=== PATIENT | male | born 1955 | race Caucasian/White ===

== ENCOUNTER 2018-10-14 20:22 | Inpatient (IN) ==
--- NOTE | 2018-10-14 21:22 | Emergency Department Note ---
Recheck HPI - General Chief Complaint: Recheck/Abnormal Lab/Rx Stated Complaint: Lab recheck Time Seen by Provider: 10/14/18 21:13 Source: patient Mode of arrival: ambulatory Limitations: no limitations - History of Present Illness HPI Narrative: This 63-year-old gentleman had a low sodium previously and then again was lower today he believes around 121 and was called to have it be rechecked by coming to the emergency room. In the past it has been in the 120s to low 130s. He was on a diuretic for retention of fluid, furosemide 40 mg and Spironolactone 100. The furosemide was recently doubled to 80. Spironolactone he thinks may have been doubled also. He had paracentesis 2 weeks ago and they drained off quite a bit of fluid. He is lost significant weight in the past several weeks because of this. He has gradually lost some weight over the past 6 months according to his . REVIEW OF SYSTEMS: Denies fever, chills. Denies sore throat, runny nose. Denies chest pain. Denies cough and wheezing. Has some chronic shortness of breath. Has a history of emphysema/COPD. Denies abdominal pain. Has occasional nausea. No vomiting. No hematochezia. He feels significantly on the weak side, dizzy/ lightheaded, imbalance and tired. Denies anxiety or depression. - Related Data Home Medications Medication Instructions Recorded Confirmed Albuterol Sulfate [Proair Hfa] 8.5 gm IH DAILY 11/29/17 11/29/17 Ipratropium/Albuterol [Duoneb] 3 ml NEB Q4HP PRN 11/29/17 11/29/17 Lisinopril [Zestril] 10 mg PO DAILY 11/29/17 11/29/17 Allergies Allergy/AdvReac Type Severity Reaction Status Date / Time No Known Drug Allergies Allergy Unverified 11/29/17 17:54 Past Medical History - Past Medical History Medical history: Reports: COPD, hypertension, other (C. difficile history was treated and resolved). Denies: CHF, CVA, DM, hyperlipidemia, hypothyroidism, myocardial infarction, seizures, TIA Psychiatric history: Denies: anxiety, depression Surgical history ED: Reports: appendectomy, herniorrhaphy, tonsillectomy - Social History smoking status: Former smoker Alcohol use: Reports: None (quit early Sep 2018; was 6-8 beer/day.), Daily Drug use: Reports: none. Denies: marijuana Physical Exam Limitations: no limitations General appearance: alert, cachectic, in no apparent distress Head: atraumatic, normocephalic Eye: Present: PERRL, EOMI, scleral icterus (Mild). Absent: conjunctival injection ENT: normal oropharynx, mucous membranes dry Neck: Present: trachea midline. Absent: lymphadenopathy, thyromegaly Respiratory: Present: normal lung sounds bilaterally (But rather distant). Absent: respiratory distress, wheezes, stridor, accessory muscle use, prolonged expiratory phase Cardiovascular: Present: regular rate, normal rhythm. Absent: systolic murmur, diastolic murmur Abdominal: Present: soft. Absent: distention, tenderness, guarding, rebound, rigidity, organomegaly, mass Extremities: Absent: pedal edema, pretibial edema, calf tenderness Back: Absent: CVA tenderness (R), CVA tenderness (L), spinous process tenderness Neurological: Present: alert, oriented X3 Psychiatric: Present: flat affect, serious Skin: Present: warm, dry Course Course Narrative: 8:58 PM - recent hyponatremia. We will do labs. 9:17 PM - I spoke with hospitalist, Dr. Malone. Symptomatic hyponatremia at 119. He would like to get a CBC, CBC and chest x-ray before committing to admission. Vital Signs Temperature 97.6 F 10/14/18 20:23 Pulse Rate 83 10/14/18 20:23 Respiratory Rate 17 10/14/18 20:23 Blood Pressure 112/80 10/14/18 20:23 Pulse Oximetry (%) 88 L 10/14/18 20:23 Temperature 97.6 F 10/14/18 20:23 Pulse Rate 83 10/14/18 20:23 Respiratory Rate 17 10/14/18 20:23 Blood Pressure 112/80 10/14/18 20:23 Pulse Oximetry (%) 88 L 10/14/18 20:23 Recheck/Abnormal Lab/Rx - Medical Records Medical records reviewed: Yes I reviewed the patient's medical records. - Lab Data Lab results reviewed: Yes I reviewed the patient's lab results. Lab Results 10/14/18 Range/Units 20:30 POC Hct 41.0 (41.0-55.0) % POC Sodium 119 L (133-145) mmol/L POC Potassium 3.8 (3.3-5.1) mmol/L POC Chloride 81 L (96-108) mmol/L POC Total CO2 26 (22-30) mmol/L POC BUN 9 (8-23) mg/dl POC Creatinine 0.6 L (0.7-1.2) mg/dl POC Glucose 98 (70-105) mg/dL POC WB Ioniz Calcium 1.04 L (1.16-1.32) mmol/L Disposition Pt seen by [facility]ER/PA only: No Clinical Impression: Hyponatremia, Weakness Summary: With patient's worsening hyponatremia now symptomatic with his weakness, lightheadedness, etc., inpatient treatment is indicated and Dr. Malone kindly accepts care of this patient. Some labs are still pending. Hopefully he is not at the point of end-stage liver disease. Problem list updated. Disposition: Xfer As Inpt ([facility]) Condition: Fair Referrals: Zee Bravo ARNP [Primary Care Provider] -
--- NOTE | 2018-10-14 22:22 | Internal Med History&Physical ---
Medical - H&P: HPI Patient information: Note initiated : 10/14/18 at 10:20 pm Service Date, if different from initiated Date: [] Patient: Dontrell Grande a 63 y/o M admitted on for Lab recheck. Chief Complaint: [] History of present illness: Mr. Grande is a 63 year old M who presents to the emergency room for evaluation of abnormal labs. The patient has a history of severe alcohol intake, he was diagnosed with cirrhosis approximately 4-6 weeks ago, he stopped drinking since then. The patient has been followed up by Dr. Gonzalez. Initially the patient was started on Aldactone 100 mg and Lasix 40 mg, the patient still had some edema and abdominal distention and therefore over the last 2 weeks the dose of Aldactone has been doubled and according to the patient the dose of Lasix also was doubled. It is my understanding that the patient was taking 200 mg of Aldactone and 80 mg of Lasix. The patient was also on lisinopril hydrochlorothiazide which the patient's test was stopped a month ago. Today during his lab work it was found that his sodium level was low 121 he was therefore sent to the emergency room for further evaluation. He is accompanied by his . The patient admits to having some dizziness and disorientation for the last 2-3 days. He denies any other acute complaints or symptoms. He denies any headache changes in vision difficulty in swallowing chest pain shortness of breath no bowel bladder complaints no blood in the stools he denies any edema in the feet and notes that he still feels like his abdomen is distended but it is better than before. He is concerned about the fluid restriction and that he feels very thirsty at the same time he has been given so much water pills. The emergency room [id number] sodium was done sodium was 119 and the patient is being admitted to the hospital for further management. Repeat blood tests have been ordered All systems: reviewed and no additional remarkable complaints except as stated ( As per HPI or is negative) Medical - H&P: PMH Medical history: Medical History (Last Updated 10/14/18 @ 21:37 by Jose Khan DO) Pulmonary hypertension (Chronic) Alcoholic liver disease, unspecified (Chronic) Hyponatremia (Chronic) Cachexia (Chronic) Hypertension, essential (Chronic) Emphysema, unspecified (Chronic) Surgical history: History of appendectomy History of abdominal hernia Pertinent family history: Mother with history of emphysema Social history: Heavy alcohol user quit a month ago Ex-smoker nearly [id number] history of smoking Retired Lives with Medical - H&P: Meds Home Medications Medication Instructions Recorded Confirmed Type Albuterol Sulfate [Proair Hfa] 8.5 gm IH Q4HP PRN 11/29/17 10/14/18 History Ipratropium/Albuterol [Duoneb] 3 ml NEB Q4HP PRN 11/29/17 10/14/18 History Furosemide [Lasix] 80 mg PO ONCE 10/14/18 10/14/18 History Spironolactone [Aldactone] 100 mg PO ONCE 10/14/18 10/14/18 History Allergies Allergy/AdvReac Type Severity Reaction Status Date / Time No Known Drug Allergies Allergy Unverified 11/29/17 17:54 Medical - H&P: Exam - Constitutional Vitals: Temp Pulse Resp BP Pulse Ox 97.6 F 83 17 112/80 88 L 10/14/18 20:23 10/14/18 20:23 10/14/18 20:23 10/14/18 20:23 10/14/18 20:23 Exam: GENERAL: The patient is a think, frail man in no apparent distress. Is alert and oriented x3. VITAL SIGNS: Reviewed and as noted elsewhere. HEENT: Head is normocephalic and atraumatic. Extraocular muscles are intact. Pupils are equal, round, and reactive to light. Nares appeared normal. Mouth appears any without lesions. Mucous membranes are moist. NECK: Normal to inspection, Supple, No lymphadenopathy or thyromegaly. LUNGS: Air entry equal on both sides, decreased bilaterally, no wheezing, crackles or rhonchi noted. No accessory muscles of respiration HEART: Regular rate and rhythm normal, S1 and S2 heard, no Gallop, S3 or Rub Noted, No Gross murmur heard. ABDOMEN: Soft, nontender, and nondistended. Positive bowel sounds. No hepatosplenomegaly was noted. EXTREMITIES: No cyanosis, clubbing, rash, lesions or edema. NEUROLOGIC: Cranial nerves II through XII are grossly intact. Motor and Sensory System Grossly Intact PSYCHIATRIC: Normal affect, Normal Mood. Appropriate Behavior. SKIN: No ulceration or wounds noted, present jaundice, No rash noted. Medical - H&P: Reslt - Labs CBC & Chem 7: 10/14/18 20:50 10/14/18 20:50 Medical - H&P: A/P - Narrative A/P Narrative: A/P Hyponatremia, symptomatic Emphysema ALcoholic Cirrhosis HTN Pulmonary Hypertension Severe Malnourishment Plan admit to [facility] status given that he is symptomatic and sodium less than 120, start on hypertonic saline 15ml/hr, IV lasix 20mg x 1 Trend sodium levels check serum osm, urine sodium, urine osm, tsh, Pt etiology of hyponatremia is likely high dose of aldactone. BP is stable Duonebs q6hrs for emphysema/copd DVT hep sq Full code
[2018-10-14 22:28] LABS: Basophils # (Auto) 0 K/mcL (0.0-0.3); Basophils % (Auto) 0 % (0.0-2.0); Eosinophils # (Auto) 0.1 K/mcL (0.0-0.7); Eosinophils % (Auto) 0.8 % (0.0-7.0); Granulocytes % (Auto) 72.8 % (38.0-78.0); Lymphocytes # (Auto) 1.7 K/mcL (1.5-4.8); Lymphocytes % (Auto) 15.6 % (15.5-49.0); Mean Corpuscular HGB Conc 35.1 g/dL (31.0-36.0); Monocytes # (Auto) 1.2 K/mcL (0.1-0.9); Monocytes % (Auto) 10.8 % (1.0-12.0); Platelet Count 147 K/mcL (140-440); RBC 3.62 M/mcL (4.50-5.90); Red Cell Distribution Width 15.6 % (11.5-14.5)
[2018-10-14 22:50] LABS: ALT/SGPT 55 U/l (0-40); Albumin 2.7 gm/dL (3.2-5.2); Albumin/Globulin Ratio 0.6 (1.0-2.3); Alkaline Phosphatase 121 U/L (39-117); Blood Urea Nitrogen 9 mg/dl (8-23)
[2018-10-14] MEDS ORDERED: ONDANSETRON 4 MG/2 ML VIAL IV PRN (23:06)
[2018-10-14] MEDS ORDERED: ACETAMINOPHEN 325 MG TABLET PO PRN (23:06)
[2018-10-14] MEDS ORDERED: NALOXONE HCL 0.4 MG/ML VIAL IV PRN (23:06)
[2018-10-14] MEDS ORDERED: SODIUM CHLORIDE 3 % 500 ML IV SCH (23:06)
[2018-10-14] MEDS ORDERED: FUROSEMIDE 20 MG/2 ML VIAL IV ONE (23:06)
[2018-10-15 00:02] LABS: Uric Acid 3.2 mg/dL (2.5-8.0)
[2018-10-15] MEDS ORDERED: FUROSEMIDE 20 MG/2 ML VIAL IV ONE (00:28)
[2018-10-15] MEDS: 0.9 % SODIUM CHLORIDE 10 ML SYRINGE IV SCH ×4 (00:37→21:20)
[2018-10-15] MEDS ORDERED: IPRATROPIUM/ALBUTEROL 3 ML AMPUL.NEB NEB ONE ×2 (02:30→22:43)
[2018-10-15 02:31] LABS: Appearance,Urine CLEAR; Bacteria,Urine 0 /hpf (0); Bilirubin,Urine NEG (NEG); Color,Urine YELLOW; Glucose,Urine (UA) NEGATIVE (NEG); Leukocyte Esterase,Urine NEG /uL (NEG); Mucus,Urine FEW /hpf (0); Protein,Urine NEG (NEG); Specific Gravity,Urine 1.018 (1.000-1.035); Urine Blood NEG mg/dL (<0.03); Urine Hyaline Cast 2 /lpf (0-2); Urine RBC 1 /hpf (0-1); Urine Squamous Epithelial Cell < 1 /hpf (0-4); Urine WBC 1 /hpf (0-4)
[2018-10-15] MEDS: IPRATROPIUM/ALBUTEROL 3 ML AMPUL.NEB NEB SCH ×4 (02:35→19:06)
[2018-10-15 02:48] LABS: Osmolality,Urine 501 mOsm/kg (80-1000)
[2018-10-15 02:48] LABS: Blood Urea Nitrogen 9 mg/dl (8-23)
--- NOTE | 2018-10-15 05:01 | XRay Report ---
CLINICAL INFORMATION: hyponatremia COMPARISON: 06/30/2016 FINDINGS: Heart size, mediastinum and pulmonary vessels are normal. Severe COPD changes noted. There are no infiltrates or nodules. No effusions. Mild old compression fractures seen throughout the upper and mid thoracic spine. IMPRESSION: Severe COPD. No acute disease Interpreted and Authenticated by: Jim Broderick 10/15/18
[2018-10-15 05:15] LABS: Basophils # (Auto) 0 K/mcL (0.0-0.3); Basophils % (Auto) 0.1 % (0.0-2.0); Eosinophils # (Auto) 0 K/mcL (0.0-0.7); Eosinophils % (Auto) 0 % (0.0-7.0); Lymphocytes # (Auto) 1.2 K/mcL (1.5-4.8); Mean Cell Volume 103.9 fL (80.0-100.0); Monocytes # (Auto) 1.1 K/mcL (0.1-0.9); Monocytes % (Auto) 11.9 % (1.0-12.0); Platelet Count 112 K/mcL (140-440); RBC 3.15 M/mcL (4.50-5.90); Red Cell Distribution Width 16.9 % (11.5-14.5)
[2018-10-15 05:37] LABS: ALT/SGPT 46 U/l (0-40); Albumin 2.3 gm/dL (3.2-5.2); Albumin/Globulin Ratio 0.6 (1.0-2.3); Alkaline Phosphatase 111 U/L (39-117); Bilirubin,Direct 1.7 mg/dL (0.0-0.3); Blood Urea Nitrogen 9 mg/dl (8-23); Gamma Glutamyl Transpeptidase 65 U/L (8-61); Uric Acid 3.2 mg/dL (2.5-8.0)
[2018-10-15] MEDS ORDERED: SODIUM CHLORIDE 3 % 500 ML IV SCH (06:00)
[2018-10-15] MEDS ORDERED: SODIUM CHLORIDE 3 % 500 ML IV ONE (07:30)
[2018-10-15] MEDS ORDERED: POTASSIUM CHLORIDE 20 MEQ PACKET PO ONE (08:17)
[2018-10-15] MEDS ORDERED: MAGNESIUM SULFATE 32.48 MEQ in DEXTROSE 5% IN WATER 100 ML IV ONE (08:18)
[2018-10-15] MEDS: HEPARIN 5,000 UNIT/ML VIAL SQ SCH ×2 (08:44→21:19)
[2018-10-15] MEDS: FUROSEMIDE 40 MG TABLET PO SCH (08:44)
[2018-10-15] MEDS ORDERED: MAGNESIUM SULFATE IN WATER 4 GM/100 ML BAG IV ONE (09:00)
[2018-10-15] MEDS: SODIUM CHLORIDE 3 % 500 ML IV SCH (10:00)
[2018-10-15 10:05] LABS: Blood Urea Nitrogen 9 mg/dl (8-23)
[2018-10-15] MEDS ORDERED: ALBUTEROL SULFATE 1 PUFF INHALER INH PRN (10:12)
--- NOTE | 2018-10-15 11:06 | Internal Med Progress Note ---
Medical - PN: Subj Patient information: Note initiated : 10/15/18 at 11:04 am Service Date, if different from initiated Date: [] Patient: Dontrell Grande a 63 y/o M admitted on 10/14/18 for Lab recheck. Chief Complaint: [] Interval history: Mr. Grande is a 63 year old M who presents to the emergency room for evaluation of abnormal labs. The patient has a history of severe alcohol intake, he was diagnosed with cirrhosis approximately 4-6 weeks ago, he stopped drinking since then. The patient has been followed up by Dr. Gonzalez. Initially the patient was started on Aldactone 100 mg and Lasix 40 mg, the patient still had some edema and abdominal distention and therefore over the last 2 weeks the dose of Aldactone has been doubled and according to the patient the dose of Lasix also was doubled. It is my understanding that the patient was taking 200 mg of Aldactone and 80 mg of Lasix. The patient was also on lisinopril hydrochlorothiazide which the patient's test was stopped a month ago. Today during his lab work it was found that his sodium level was low 121 he was therefore sent to the emergency room for further evaluation. He is accompanied by his . The patient admits to having some dizziness and disorientation for the last 2-3 days. He denies any other acute complaints or symptoms. He denies any headache changes in vision difficulty in swallowing chest pain shortness of breath no bowel bladder complaints no blood in the stools he denies any edema in the feet and notes that he still feels like his abdomen is distended but it is better than before. He is concerned about the fluid restriction and that he feels very thirsty at the same time he has been given so much water pills. The emergency room [id number] sodium was done sodium was 119 and the patient is being admitted to the hospital for further management. Repeat blood tests have been ordered 10/15 Patient seen and examined, no acute overnight events no new complaints. Chemistry on admission showed a sodium level of 116. Sodium level is slowly trending up, patient is on fluid restriction and 3% saline. TSH is normal, urine sodium 30, urine osm 501 Pertinent ROS: Denies headache, present some dizziness [he feels dizziness is better] Denies chest pain, palpitations Denies cough or shortness of breath Denies abdominal pain, nausea or vomiting. Additional PMFSH (Level 3 Only): Medical History (Last Updated 10/14/18 @ 21:37 by Jose Khan DO) Pulmonary hypertension (Chronic) Alcoholic liver disease, unspecified (Chronic) Hyponatremia (Chronic) Cachexia (Chronic) Hypertension, essential (Chronic) Emphysema, unspecified (Chronic) - Constitutional Vitals: Vital Signs Temp Pulse Resp BP Pulse Ox 98.3 F 88 16 105/63 96 10/15/18 06:31 10/15/18 08:02 10/15/18 08:02 10/15/18 06:31 10/15/18 06:31 Period Temp Pulse Resp BP Sys/Clark Pulse Ox Last 24 Hr 97.6 F-100.3 F 78-88 14-20 99-118/53-80 88-97 Intake and Output 10/14/18 10/15/18 10/15/18 21:59 05:59 13:59 Intake Total 660 / 660 Output Total 225 / 225 250 / 250 Balance -225 / -225 410 / 410 Weight 110 lb 108 lb 8 oz 108 lb 8 oz Patient Weight 10/16/18 05:59 Weight 108 lb 8 oz Intake & Output: Intake & Output 10/14/18 10/15/18 10/15/18 21:59 05:59 13:59 Intake Total 660 / 660 Output Total 225 / 225 250 / 250 Balance -225 / -225 410 / 410 Weight 110 lb 108 lb 8 oz 108 lb 8 oz Intake: IV 300 / 300 Oral 360 / 360 Output: Void Amount 225 / 225 250 / 250 Other: Urine Appearance Clear Urine Color Light Tawanna Urine Odor Strong Exam: Constitutional; Afebrile, cooperative, alert, not in distress. Respiratory system: Air Entry equal on both sides, No crackles or wheezing, no rhonchi. CVS- Rate rhythm regular, S1,S2 heard, no gallop, no rub. Abdomen- Soft nontender abdomen, no organomegaly, no tenderness, no guarding or rigidity, STRATEGIC COMMUNICATIONS SPECIALIST- AOOx3, moving all extremities, no gross focal deficit noted. Medical - PN: Obj Da - Labs CBC & Chem 7: 10/15/18 03:40 10/15/18 08:33 Labs: Abnormal Lab Results 10/15/18 10/15/18 10/15/18 08:33 03:40 03:40 RBC Hgb Hct MCV MCH RDW Plt Count MPV Lymph % (Auto) Lymph # (Auto) Bowman # (Auto) PT 19.4 H INR 1.6 H POC Sodium Sodium 118 L* 117 L* POC Chloride Chloride 84 L 83 L Creatinine 0.5 L 0.5 L POC Creatinine Glucose 134 H Osmolality Calcium 8.2 L 7.9 L POC WB Ioniz Calcium Phosphorus 2.4 L Magnesium 1.4 L Total Bilirubin 3.5 H Direct Bilirubin 1.7 H GGT 65 H AST 73 H ALT 46 H Alkaline Phosphatase Albumin 2.3 L Globulin 3.9 H Albumin/Globulin Ratio 0.6 L Urine Urobilinogen 10/15/18 10/15/18 10/14/18 03:40 01:35 20:50 RBC 3.15 L Hgb 11.4 L Hct 32.7 L MCV 103.9 H MCH 36.3 H RDW 16.9 H Plt Count 112 L MPV 7.2 L Lymph % (Auto) 12.0 L Lymph # (Auto) 1.2 L Bowman # (Auto) 1.1 H PT INR POC Sodium Sodium 118 L* 116 L* POC Chloride Chloride 81 L 81 L Creatinine 0.6 L 0.6 L POC Creatinine Glucose 130 H Osmolality Calcium 8.2 L 8.5 L POC WB Ioniz Calcium Phosphorus Magnesium Total Bilirubin 4.3 H Direct Bilirubin GGT AST 98 H ALT 55 H Alkaline Phosphatase 121 H Albumin 2.7 L Globulin 4.5 H Albumin/Globulin Ratio 0.6 L Urine Urobilinogen 10/14/18 10/14/18 10/14/18 20:50 20:48 20:30 RBC 3.62 L Hgb 13.1 L Hct 37.3 L MCV 103.0 H MCH 36.2 H RDW 15.6 H Plt Count MPV 6.8 L Lymph % (Auto) Lymph # (Auto) Bowman # (Auto) 1.2 H PT INR POC Sodium 119 L Sodium POC Chloride 81 L Chloride Creatinine POC Creatinine 0.6 L Glucose Osmolality 248 L Calcium POC WB Ioniz Calcium 1.04 L Phosphorus Magnesium Total Bilirubin Direct Bilirubin GGT AST ALT Alkaline Phosphatase Albumin Globulin Albumin/Globulin Ratio Urine Urobilinogen 10/14/18 01:55 RBC Hgb Hct MCV MCH RDW Plt Count MPV Lymph % (Auto) Lymph # (Auto) Bowman # (Auto) PT INR POC Sodium Sodium POC Chloride Chloride Creatinine POC Creatinine Glucose Osmolality Calcium POC WB Ioniz Calcium Phosphorus Magnesium Total Bilirubin Direct Bilirubin GGT AST ALT Alkaline Phosphatase Albumin Globulin Albumin/Globulin Ratio Urine Urobilinogen 2.0 A Meds: Medications Acetaminophen (Tylenol) 650 mg PO Q12HP PRN PRN Reason: PAIN/FEVER > 101 Albuterol Sulfate (Ventolin) 1 puff INH Q4HP PRN PRN Reason: Shortness Of Breath Albuterol/Ipratropium (Duoneb) 3 ml NEB Q6HRT [facility] Last Admin: 10/15/18 07:59 Dose: 3 ml Furosemide (Lasix) 40 mg PO DAILY [facility] Last Admin: 10/15/18 08:44 Dose: 40 mg Heparin Sodium (Porcine) (Heparin) 5,000 unit SQ Q12 [facility] Last Admin: 10/15/18 08:44 Dose: 5,000 unit Sodium Chloride (Sodium Chloride 3%) 500 mls @ 25 mls/hr IV ONCE LILIA Stop: 10/16/18 12:00 Last Admin: 10/15/18 10:00 Dose: 25 mls/hr Naloxone HCl (Narcan) 0.1 mg IV Q2MIN PRN PRN Reason: Opiate Reversal Ondansetron HCl (Zofran) 4 mg IV Q4HP PRN PRN Reason: Nausea And Vomiting Sodium Chloride (Saline Flush) 10 ml IV Q8 [facility] Last Admin: 10/15/18 06:00 Dose: Not Given Medical - PN: A/P - Time Spent With Patient Total time spent is greater than 50% in coordination of care (as documented) at patient's floor/unit and/or counseling patient: - Narrative A/P Narrative: A/P Hyponatremia, symptomatic ( was on lasix and aldactone, dose was doubled 2 weeks before presentation) -dizzness improved -Na 118 today, drip of saline 3% increased to 25ml/hr, check sodium every 4 hrs as possible, once sodium crosses 120 we can switch to oral sodium chloride and fluid restriction with lasix -urine sodium 30, Urine osm elevated -protein energy malnutrition could also be playing a role, alb is 2.3 Emphysema -stable, -continue home inhalers -duonebs ALcoholic Cirrhosis -T jessica stable, -follow up outpatient with Dr Gonzalez HTN -BP stable, not on any meds, was on lisinopril-hctz -but I beileve lasix and aldactone is helping. Pulmonary Hypertension -outpatient follow up Severe Malnourishment -encourage oral intake -Dietary referral -albumin is 2.3 DVT hep sq Full code Medical - PN: Qual - VTE Deep Vein Thrombosis/Pulmonary Embolism Present on Admission: No
--- NOTE | 2018-10-15 13:32 | Internal Med Progress Note ---
Medical - PN: Subj Patient information: Note initiated : 10/15/18 at 1:28 pm Service Date, if different from initiated Date: [] Patient: Dontrell Grande a 63 y/o M admitted on 10/14/18 for Lab recheck. Chief Complaint: [] Interval history: Mr. Grande is a 63 year old M who presents to the emergency room for evaluation of abnormal labs. The patient has a history of severe alcohol intake, he was diagnosed with cirrhosis approximately 4-6 weeks ago, he stopped drinking since then. The patient has been followed up by Dr. Gonzalez. Initially the patient was started on Aldactone 100 mg and Lasix 40 mg, the patient still had some edema and abdominal distention and therefore over the last 2 weeks the dose of Aldactone has been doubled and according to the patient the dose of Lasix also was doubled. It is my understanding that the patient was taking 200 mg of Aldactone and 80 mg of Lasix. The patient was also on lisinopril hydrochlorothiazide which the patient's test was stopped a month ago. Today during his lab work it was found that his sodium level was low 121 he was therefore sent to the emergency room for further evaluation. He is accompanied by his . The patient admits to having some dizziness and disorientation for the last 2-3 days. He denies any other acute complaints or symptoms. He denies any headache changes in vision difficulty in swallowing chest pain shortness of breath no bowel bladder complaints no blood in the stools he denies any edema in the feet and notes that he still feels like his abdomen is distended but it is better than before. He is concerned about the fluid restriction and that he feels very thirsty at the same time he has been given so much water pills. The emergency room [id number] sodium was done sodium was 119 and the patient is being admitted to the hospital for further management. Repeat blood tests have been ordered 10/15 Patient seen and examined, no acute overnight events no new complaints. Chemistry on admission showed a sodium level of 116. Sodium level is slowly trending up, patient is on fluid restriction and 3% saline. TSH is normal, urine sodium 30, urine osm 501 10/16 - Constitutional Vitals: Vital Signs Temp Pulse Resp BP Pulse Ox 97.8 F 88 20 100/73 99 10/15/18 12:50 10/15/18 08:02 10/15/18 12:50 10/15/18 12:50 10/15/18 12:50 Period Temp Pulse Resp BP Sys/Clark Pulse Ox Last 24 Hr 97.6 F-100.3 F 78-88 14-20 99-118/53-80 88-99 Intake and Output 10/14/18 10/15/18 10/15/18 21:59 05:59 13:59 Intake Total 660 / 660 Output Total 225 / 225 250 / 250 Balance -225 / -225 410 / 410 Weight 49.895 kg 49.215 kg 49.215 kg Patient Weight 10/16/18 05:59 Weight 49.215 kg Intake & Output: Intake & Output 10/14/18 10/15/18 10/15/18 21:59 05:59 13:59 Intake Total 660 / 660 Output Total 225 / 225 250 / 250 Balance -225 / -225 410 / 410 Weight 49.895 kg 49.215 kg 49.215 kg Intake: IV 300 / 300 Oral 360 / 360 Output: Void Amount 225 / 225 250 / 250 Other: Urine Appearance Clear Urine Color Light Tawanna Urine Odor Strong Exam: General: Alert, Awake, No acute Distress Eyes/N/T: EOMI, Head/Neck: neck supple, CV: RRR, No murmurs, Pulm: Clear b/l, no wheezing/rhonchi/rales Abd: soft, nontender, +BS x4 Ext: no clubbing/cyanosis/edema Neuro: Alert, no focal deficits, moves all extremities, Skin: warm/dry Medical - PN: Obj Da - Labs CBC & Chem 7: 10/15/18 03:40 10/15/18 08:33 Labs: Abnormal Lab Results 10/15/18 10/15/18 10/15/18 08:33 03:40 03:40 RBC Hgb Hct MCV MCH RDW Plt Count MPV Lymph % (Auto) Lymph # (Auto) [place] # (Auto) PT 19.4 H INR 1.6 H POC Sodium Sodium 118 L* 117 L* POC Chloride Chloride 84 L 83 L Creatinine 0.5 L 0.5 L POC Creatinine Glucose 134 H Osmolality Calcium 8.2 L 7.9 L POC WB Ioniz Calcium Phosphorus 2.4 L Magnesium 1.4 L Total Bilirubin 3.5 H Direct Bilirubin 1.7 H GGT 65 H AST 73 H ALT 46 H Alkaline Phosphatase Albumin 2.3 L Globulin 3.9 H Albumin/Globulin Ratio 0.6 L Urine Urobilinogen 10/15/18 10/15/18 10/14/18 03:40 01:35 20:50 RBC 3.15 L Hgb 11.4 L Hct 32.7 L MCV 103.9 H MCH 36.3 H RDW 16.9 H Plt Count 112 L MPV 7.2 L Lymph % (Auto) 12.0 L Lymph # (Auto) 1.2 L [place] # (Auto) 1.1 H PT INR POC Sodium Sodium 118 L* 116 L* POC Chloride Chloride 81 L 81 L Creatinine 0.6 L 0.6 L POC Creatinine Glucose 130 H Osmolality Calcium 8.2 L 8.5 L POC WB Ioniz Calcium Phosphorus Magnesium Total Bilirubin 4.3 H Direct Bilirubin GGT AST 98 H ALT 55 H Alkaline Phosphatase 121 H Albumin 2.7 L Globulin 4.5 H Albumin/Globulin Ratio 0.6 L Urine Urobilinogen 10/14/18 10/14/18 10/14/18 20:50 20:48 20:30 RBC 3.62 L Hgb 13.1 L Hct 37.3 L MCV 103.0 H MCH 36.2 H RDW 15.6 H Plt Count MPV 6.8 L Lymph % (Auto) Lymph # (Auto) [place] # (Auto) 1.2 H PT INR POC Sodium 119 L Sodium POC Chloride 81 L Chloride Creatinine POC Creatinine 0.6 L Glucose Osmolality 248 L Calcium POC WB Ioniz Calcium 1.04 L Phosphorus Magnesium Total Bilirubin Direct Bilirubin GGT AST ALT Alkaline Phosphatase Albumin Globulin Albumin/Globulin Ratio Urine Urobilinogen 10/14/18 01:55 RBC Hgb Hct MCV MCH RDW Plt Count MPV Lymph % (Auto) Lymph # (Auto) [place] # (Auto) PT INR POC Sodium Sodium POC Chloride Chloride Creatinine POC Creatinine Glucose Osmolality Calcium POC WB Ioniz Calcium Phosphorus Magnesium Total Bilirubin Direct Bilirubin GGT AST ALT Alkaline Phosphatase Albumin Globulin Albumin/Globulin Ratio Urine Urobilinogen 2.0 A Meds: Medications Acetaminophen (Tylenol) 650 mg PO Q12HP PRN PRN Reason: PAIN/FEVER > 101 Albuterol Sulfate (Ventolin) 1 puff INH Q4HP PRN PRN Reason: Shortness Of Breath Albuterol/Ipratropium (Duoneb) 3 ml NEB Q6HRT [facility] Last Admin: 10/15/18 07:59 Dose: 3 ml Furosemide (Lasix) 40 mg PO DAILY [facility] Last Admin: 10/15/18 08:44 Dose: 40 mg Heparin Sodium (Porcine) (Heparin) 5,000 unit SQ Q12 [facility] Last Admin: 10/15/18 08:44 Dose: 5,000 unit Sodium Chloride (Sodium Chloride 3%) 500 mls @ 25 mls/hr IV ONCE [facility] Stop: 10/16/18 12:00 Last Admin: 10/15/18 10:00 Dose: 25 mls/hr Naloxone HCl (Narcan) 0.1 mg IV Q2MIN PRN PRN Reason: Opiate Reversal Ondansetron HCl (Zofran) 4 mg IV Q4HP PRN PRN Reason: Nausea And Vomiting Sodium Chloride (Saline Flush) 10 ml IV Q8 [facility] Last Admin: 10/15/18 06:00 Dose: Not Given Medical - PN: A/P - Time Spent With Patient Total time spent is greater than 50% in coordination of care (as documented) at patient's floor/unit and/or counseling patient: - Narrative A/P Narrative: A: *Hyponatremia, symptomatic ( was on lasix and aldactone, dose was doubled 2 weeks before presentation) -dizzness improved -Na 118 today, -urine sodium 30, Urine osm elevated -protein energy malnutrition could also be playing a role, alb is 2.3 *Emphysema: stable, *Alcoholic Cirrhosis: T jessica stable, -follow up outpatient with Dr Gonzalez *HTN: -BP stable, not on any meds, was on lisinopril-hctz but I beileve lasix and aldactone is helping. *Pulmonary Hypertension: outpatient follow up *Severe Malnourishment: *Hypomag: P: - drip of saline 3% increased to 25ml/hr, check sodium every 4 hrs as possible, once sodium crosses 120 we can switch to oral sodium chloride and fluid restriction with lasix - -continue home inhalers -duonebs -encourage oral intake -Dietary referral -replete mag -pp: hep sq Full code Medical - PN: Qual - VTE Deep Vein Thrombosis/Pulmonary Embolism Present on Admission: No
[2018-10-15 13:57] LABS: Blood Urea Nitrogen 9 mg/dl (8-23)
[2018-10-15 19:24] LABS: Blood Urea Nitrogen 9 mg/dl (8-23)
[2018-10-15 21:59] LABS: Blood Urea Nitrogen 9 mg/dl (8-23)
[2018-10-16] MEDS: SODIUM CHLORIDE 3 % 500 ML IV SCH (00:43)
[2018-10-16] MEDS: IPRATROPIUM/ALBUTEROL 3 ML AMPUL.NEB NEB SCH ×5 (00:43→18:30)
[2018-10-16] MEDS: 0.9 % SODIUM CHLORIDE 10 ML SYRINGE IV SCH ×3 (05:05→21:01)
[2018-10-16 05:22] LABS: Basophils # (Auto) 0 K/mcL (0.0-0.3); Basophils % (Auto) 0.3 % (0.0-2.0); Eosinophils # (Auto) 0 K/mcL (0.0-0.7); Eosinophils % (Auto) 0.3 % (0.0-7.0); Granulocytes % (Auto) 73.1 % (38.0-78.0); Lymphocytes # (Auto) 1.4 K/mcL (1.5-4.8); Lymphocytes % (Auto) 13.6 % (15.5-49.0); Mean Cell Volume 105.4 fL (80.0-100.0); Mean Corpuscular HGB Conc 35.4 g/dL (31.0-36.0); Monocytes # (Auto) 1.3 K/mcL (0.1-0.9); Monocytes % (Auto) 12.7 % (1.0-12.0); Platelet Count 97 K/mcL (140-440); RBC 3.12 M/mcL (4.50-5.90); Red Cell Distribution Width 17.4 % (11.5-14.5)
[2018-10-16 05:45] LABS: ALT/SGPT 45 U/l (0-40); Albumin 2.3 gm/dL (3.2-5.2); Albumin/Globulin Ratio 0.6 (1.0-2.3); Alkaline Phosphatase 111 U/L (39-117); Bilirubin,Direct 1.7 mg/dL (0.0-0.3); Blood Urea Nitrogen 10 mg/dl (8-23); Gamma Glutamyl Transpeptidase 65 U/L (8-61); Uric Acid 2.7 mg/dL (2.5-8.0)
--- NOTE | 2018-10-16 07:22 | Internal Med Progress Note ---
Medical - PN: Subj Patient information: Note initiated : 10/16/18 at 7:13 am Service Date, if different from initiated Date: [] Patient: Dontrell Grande a 63 y/o M admitted on 10/14/18 for Lab recheck. Chief Complaint: [] Interval history: Mr. Grande is a 63 year old M who presents to the emergency room for evaluation of abnormal labs. The patient has a history of severe alcohol intake, he was diagnosed with cirrhosis approximately 4-6 weeks ago, he stopped drinking since then. The patient has been followed up by Dr. Gonzalez. Initially the patient was started on Aldactone 100 mg and Lasix 40 mg, the patient still had some edema and abdominal distention and therefore over the last 2 weeks the dose of Aldactone has been doubled and according to the patient the dose of Lasix also was doubled. It is my understanding that the patient was taking 200 mg of Aldactone and 80 mg of Lasix. The patient was also on lisinopril hydrochlorothiazide which the patient's test was stopped a month ago. Today during his lab work it was found that his sodium level was low 121 he was therefore sent to the emergency room for further evaluation. He is accompanied by his . The patient admits to having some dizziness and disorientation for the last 2-3 days. He denies any other acute complaints or symptoms. He denies any headache changes in vision difficulty in swallowing chest pain shortness of breath no bowel bladder complaints no blood in the stools he denies any edema in the feet and notes that he still feels like his abdomen is distended but it is better than before. He is concerned about the fluid restriction and that he feels very thirsty at the same time he has been given so much water pills. The emergency room [id number] sodium was done sodium was 119 and the patient is being admitted to the hospital for further management. Repeat blood tests have been ordered 10/15 Patient seen and examined, no acute overnight events no new complaints. Chemistry on admission showed a sodium level of 116. Sodium level is slowly trending up, patient is on fluid restriction and 3% saline. TSH is normal, urine sodium 30, urine osm 501 10/16 Supple. No dizziness or lightheadedness. No new complaints. Sodium level improving and switching to oral salt tabs today. Review of Systems: denies headache/fever/chills/nausea/vomiting/chest or abdominal pain/cough/ dyspnea/diarrhea. Otherwise see above. - Constitutional Vitals: Vital Signs Temp Pulse Resp BP Pulse Ox 98.3 F 87 17 103/63 95 10/16/18 04:00 10/15/18 22:56 10/16/18 04:00 10/16/18 04:00 10/16/18 04:00 Period Temp Pulse Resp BP Sys/Clark Pulse Ox Last 24 Hr 97.6 F-99.3 F 84-88 16-20 100-115/62-73 94-99 Intake and Output 10/15/18 10/16/18 10/16/18 21:59 05:59 13:59 Intake Total 360 / 360 968 / 968 Output Total 250 / 250 400 / 400 Balance 110 / 110 568 / 568 Weight 51.483 kg Intake & Output: Intake & Output 10/15/18 10/16/18 10/16/18 21:59 05:59 13:59 Intake Total 360 / 360 968 / 968 Output Total 250 / 250 400 / 400 Balance 110 / 110 568 / 568 Weight 51.483 kg Intake: IV 368 / 368 Sodium Chloride 3% 500 ml @ 25 368 / 368 mls/hr IV ONCE [facility] Rx#: [id number] Oral 360 / 360 600 / 600 Output: Void Amount 250 / 250 400 / 400 Other: Meal Dinner plate of vegetables Percent of Meal Consumed 100% Urine Appearance Clear Urine Color Dark Yellow Light Tawanna Exam: General: Alert, Awake, No acute Distress, cachectic Eyes/N/T: EOMI, Head/Neck: neck supple, CV: RRR, No murmurs, Pulm: Clear b/l, no wheezing/rhonchi/rales Abd: soft, protuberant, nontender, +BS x4 Ext: no clubbing/cyanosis/edema Neuro: Alert, no focal deficits, moves all extremities, Skin: warm/dry Medical - PN: Obj Da - Labs CBC & Chem 7: 10/16/18 03:40 10/16/18 03:40 Labs: Abnormal Lab Results 10/16/18 10/16/18 10/16/18 03:40 03:40 03:40 RBC 3.12 L Hgb 11.6 L Hct 32.9 L MCV 105.4 H MCH 37.3 H RDW 17.4 H Plt Count 97 L MPV 7.1 L Lymph % (Auto) 13.6 L [place] % (Auto) 12.7 H Lymph # (Auto) 1.4 L [place] # (Auto) 1.3 H PT 19.6 H INR 1.7 H POC Sodium Sodium 124 L POC Chloride Chloride 93 L Carbon Dioxide Creatinine 0.5 L POC Creatinine Glucose Osmolality Calcium 7.8 L POC WB Ioniz Calcium Phosphorus 2.2 L Magnesium Total Bilirubin 3.6 H Direct Bilirubin 1.7 H GGT 65 H AST 70 H ALT 45 H Alkaline Phosphatase Albumin 2.3 L Globulin 3.8 H Albumin/Globulin Ratio 0.6 L Urine Urobilinogen 10/15/18 10/15/18 10/15/18 20:56 17:48 13:05 RBC Hgb Hct MCV MCH RDW Plt Count MPV Lymph % (Auto) [place] % (Auto) Lymph # (Auto) [place] # (Auto) PT INR POC Sodium Sodium 120 L 120 L 119 L* POC Chloride Chloride 89 L 87 L 85 L Carbon Dioxide 21 L Creatinine 0.5 L 0.6 L 0.5 L POC Creatinine Glucose 119 H 107 H Osmolality Calcium 7.6 L 8.0 L 8.1 L POC WB Ioniz Calcium Phosphorus Magnesium Total Bilirubin Direct Bilirubin GGT AST ALT Alkaline Phosphatase Albumin Globulin Albumin/Globulin Ratio Urine Urobilinogen 10/15/18 10/15/18 10/15/18 08:33 03:40 03:40 RBC Hgb Hct MCV MCH RDW Plt Count MPV Lymph % (Auto) [place] % (Auto) Lymph # (Auto) [place] # (Auto) PT 19.4 H INR 1.6 H POC Sodium Sodium 118 L* 117 L* POC Chloride Chloride 84 L 83 L Carbon Dioxide Creatinine 0.5 L 0.5 L POC Creatinine Glucose 134 H Osmolality Calcium 8.2 L 7.9 L POC WB Ioniz Calcium Phosphorus 2.4 L Magnesium 1.4 L Total Bilirubin 3.5 H Direct Bilirubin 1.7 H GGT 65 H AST 73 H ALT 46 H Alkaline Phosphatase Albumin 2.3 L Globulin 3.9 H Albumin/Globulin Ratio 0.6 L Urine Urobilinogen 10/15/18 10/15/18 10/14/18 03:40 01:35 20:50 RBC 3.15 L Hgb 11.4 L Hct 32.7 L MCV 103.9 H MCH 36.3 H RDW 16.9 H Plt Count 112 L MPV 7.2 L Lymph % (Auto) 12.0 L [place] % (Auto) Lymph # (Auto) 1.2 L [place] # (Auto) 1.1 H PT INR POC Sodium Sodium 118 L* 116 L* POC Chloride Chloride 81 L 81 L Carbon Dioxide Creatinine 0.6 L 0.6 L POC Creatinine Glucose 130 H Osmolality Calcium 8.2 L 8.5 L POC WB Ioniz Calcium Phosphorus Magnesium Total Bilirubin 4.3 H Direct Bilirubin GGT AST 98 H ALT 55 H Alkaline Phosphatase 121 H Albumin 2.7 L Globulin 4.5 H Albumin/Globulin Ratio 0.6 L Urine Urobilinogen 10/14/18 10/14/18 10/14/18 20:50 20:48 20:30 RBC 3.62 L Hgb 13.1 L Hct 37.3 L MCV 103.0 H MCH 36.2 H RDW 15.6 H Plt Count MPV 6.8 L Lymph % (Auto) [place] % (Auto) Lymph # (Auto) [place] # (Auto) 1.2 H PT INR POC Sodium 119 L Sodium POC Chloride 81 L Chloride Carbon Dioxide Creatinine POC Creatinine 0.6 L Glucose Osmolality 248 L Calcium POC WB Ioniz Calcium 1.04 L Phosphorus Magnesium Total Bilirubin Direct Bilirubin GGT AST ALT Alkaline Phosphatase Albumin Globulin Albumin/Globulin Ratio Urine Urobilinogen 10/14/18 01:55 RBC Hgb Hct MCV MCH RDW Plt Count MPV Lymph % (Auto) [place] % (Auto) Lymph # (Auto) [place] # (Auto) PT INR POC Sodium Sodium POC Chloride Chloride Carbon Dioxide Creatinine POC Creatinine Glucose Osmolality Calcium POC WB Ioniz Calcium Phosphorus Magnesium Total Bilirubin Direct Bilirubin GGT AST ALT Alkaline Phosphatase Albumin Globulin Albumin/Globulin Ratio Urine Urobilinogen 2.0 A Meds: Medications Acetaminophen (Tylenol) 650 mg PO Q12HP PRN PRN Reason: PAIN/FEVER > 101 Albuterol Sulfate (Ventolin) 1 puff INH Q4HP PRN PRN Reason: Shortness Of Breath Albuterol/Ipratropium (Duoneb) 3 ml NEB Q6HRT [facility] Last Admin: 10/16/18 00:57 Dose: Not Given Furosemide (Lasix) 40 mg PO DAILY [facility] Last Admin: 10/15/18 08:44 Dose: 40 mg Furosemide (Lasix) 20 mg IV BIDD [facility] Heparin Sodium (Porcine) (Heparin) 5,000 unit SQ Q12 [facility] Last Admin: 10/15/18 21:19 Dose: 5,000 unit Naloxone HCl (Narcan) 0.1 mg IV Q2MIN PRN PRN Reason: Opiate Reversal Ondansetron HCl (Zofran) 4 mg IV Q4HP PRN PRN Reason: Nausea And Vomiting Sodium Chloride (Saline Flush) 10 ml IV Q8 [facility] Last Admin: 10/16/18 05:05 Dose: Not Given Medical - PN: A/P - Time Spent With Patient Total time spent is greater than 50% in coordination of care (as documented) at patient's floor/unit and/or counseling patient: - Narrative A/P Narrative: A: *Hyponatremia, symptomatic (was on lasix/aldactone, dose was doubled 2 weeks before presentation) -dizziness improved -116 on admit -urine sodium 30, Urine osm elevated -protein energy malnutrition could also be playing a role, alb is 2.3 *Alcoholic Cirrhosis: T jessica stable, -follow up outpatient with Dr Gillis -Sequela of thrombocytopenia/coagulopathy/hypoalbuminemia *Emphysema: stable, *HTN: BP stable, not on any meds, was on lisinopril-hctz, but appears lasix and aldactone were helping. *Pulmonary Hypertension: outpatient follow up *Severe Malnourishment: *Hypomag: improved P: -d/c 3%, oral salt tabs -fluid restrict 1500cc, lasix -aldactone held for now -continue home inhalers -duonebs -Dietary referral; encourage oral intake -replete mag -pp: hep sq Full code Medical - PN: Qual - VTE Deep Vein Thrombosis/Pulmonary Embolism Present on Admission: No
[2018-10-16] MEDS ORDERED: FUROSEMIDE 20 MG/2 ML VIAL IV SCH (08:00)
[2018-10-16] MEDS ORDERED: LACTULOSE 20 GM/30 ML ORAL.SOL PO ONE (08:54)
[2018-10-16] MEDS: SODIUM CHLORIDE 1 GM TABLET PO SCH ×3 (10:04→21:01)
[2018-10-16] MEDS: FUROSEMIDE 40 MG TABLET PO SCH (10:04)
[2018-10-16] MEDS: HEPARIN 5,000 UNIT/ML VIAL SQ SCH ×2 (10:16→21:00)
--- NOTE | 2018-10-16 11:12 | Discharge Summary ---
Medical - DS: Prov Patient information: Note initiated : 10/16/18 at 11:10 am Service Date, if different from initiated Date: [] Patient: Dontrell Grande 63 y/o M admitted on 10/14/18 for Lab recheck. Chief Complaint: [] Date of admission: 10/14/18 22:55 Discharge date: 10/18/18 Primary care physician: Zee Bravo Consults: 10/14/18 Consult to Physician [CONS] Stat Comment: Consulting Provider: Jo-Ann Malone Reason For Exam: Physician to Consult Medical - DS: Meds - Discharge Medications Prescriptions: Thiamine [Vitamin B1] 100 mg PO DAILY #60 tab Active and Home Medications: Home Medications Albuterol Sulfate [Proair Hfa] 8.5 gm IH Q4HP PRN 11/29/17 [History Confirmed Last Taken 10/14/18 22:30] Ipratropium/Albuterol [Duoneb] 3 ml NEB Q4HP PRN 11/29/17 [History Confirmed Last Taken 10/14/18 18:30] Furosemide [Lasix] 80 mg PO DAILY 10/14/18 [History Confirmed 10/14/18 Last Taken 10/13/18 14:00] Spironolactone [Aldactone] 100 mg PO DAILY 10/14/18 [History Confirmed 10/14/18 Last Taken 10/13/18] Glucosamine HCl/MSM [Sm Glucosamine & MSM Tablet] 1,500 mg PO 2-3XW 10/15/18 [ History Confirmed 10/15/18 Last Taken 10/14/18] Magnesium Oxide [Magnesium] 250 mg PO 2-3XW 10/15/18 [History Confirmed Last Taken Unknown] Potassium Gluconate 99 mg PO DAILY 10/15/18 [History Confirmed 10/15/18 Last Taken 10/14/18] Home Medications Albuterol Sulfate [Proair Hfa] 8.5 gm IH Q4HP PRN 11/29/17 [History Confirmed Last Taken 10/14/18 22:30] Ipratropium/Albuterol [Duoneb] 3 ml NEB Q4HP PRN 11/29/17 [History Confirmed Last Taken 10/14/18 18:30] Spironolactone [Aldactone] 100 mg PO DAILY 10/14/18 [History Confirmed 10/14/18 Last Taken 10/13/18] Glucosamine HCl/MSM [Sm Glucosamine & MSM Tablet] 1,500 mg PO 2-3XW 10/15/18 [ History Confirmed 10/15/18 Last Taken 10/14/18] Magnesium Oxide [Magnesium] 250 mg PO 2-3XW 10/15/18 [History Confirmed Last Taken Unknown] Potassium Gluconate 99 mg PO DAILY 10/15/18 [History Confirmed 10/15/18 Last Taken 10/14/18] Furosemide [Lasix] 40 mg PO DAILY tablet 10/16/18 [Rx Last Taken Unknown] Medical - DS: Hosp Hospital course: Mr. Grande is a 63 year old M Mr. Grande is a 63 year old M who presents to the emergency room for evaluation of abnormal labs. The patient has a history of severe alcohol intake, he was diagnosed with cirrhosis approximately 4-6 weeks ago, he stopped drinking since then. The patient has been followed up by Dr. Gonzalez. Initially the patient was started on Aldactone 100 mg and Lasix 40 mg, the patient still had some edema and abdominal distention and therefore over the last 2 weeks the dose of Aldactone has been doubled and according to the patient the dose of Lasix also was doubled. It is my understanding that the patient was taking 200 mg of Aldactone and 80 mg of Lasix. The patient was also on lisinopril hydrochlorothiazide which the patient's test was stopped a month ago. Today during his lab work it was found that his sodium level was low 121 he was therefore sent to the emergency room for further evaluation. He is accompanied by his . The patient admits to having some dizziness and disorientation for the last 2-3 days. He denies any other acute complaints or symptoms. He denies any headache changes in vision difficulty in swallowing chest pain shortness of breath no bowel bladder complaints no blood in the stools he denies any edema in the feet and notes that he still feels like his abdomen is distended but it is better than before. He is concerned about the fluid restriction and that he feels very thirsty at the same time he has been given so much water pills. The emergency room [id number] sodium was done sodium was 119 and the patient is being admitted to the hospital for further management. Repeat blood tests have been ordered 10/15 Patient seen and examined, no acute overnight events no new complaints. Chemistry on admission showed a sodium level of 116. Sodium level is slowly trending up, patient is on fluid restriction and 3% saline. TSH is normal, urine sodium 30, urine osm 501 10/16 Supple. No dizziness or lightheadedness. No new complaints. Sodium level improving and switching to oral salt tabs today. 10/17 Bowel movements now. Slept well. States his normal sodium level runs around 130. 1/ Overnight events. Patient stable for discharge sodium at baseline. Discharge diagnosis: Hyponatremia acute on chronic alcoholic cirrhosis emphysema - Time Spent with Patient Total time spent providing and/or coordinating discharge services: Greater than 30 minutes Medical - DS: Exam - Constitutional Vitals: Vital Signs Temp Pulse Resp BP Pulse Ox 10/16/18 07:53 98.6 F 20 106/62 97 10/16/18 07:30 80 18 10/16/18 04:00 98.3 F 17 103/63 95 10/16/18 00:00 99.3 F H 18 113/62 97 10/15/18 22:56 87 18 10/15/18 20:00 97.6 F 18 115/66 96 10/15/18 16:00 98.8 F 16 115/62 94 10/15/18 13:40 84 18 10/15/18 12:50 97.8 F 20 100/73 99 Intake and Output 10/15/18 10/16/18 10/16/18 21:59 05:59 13:59 Intake Total 360 / 360 968 / 968 Output Total 250 / 250 400 / 400 Balance 110 / 110 568 / 568 Intake: IV 368 / 368 Sodium Chloride 3% 500 ml @ 25 368 / 368 mls/hr IV ONCE [facility] Rx#: [id number] Oral 360 / 360 600 / 600 Output: Void Amount 250 / 250 400 / 400 Other: Meal Dinner plate of vegetables Percent of Meal Consumed 100% Urine Appearance Clear Urine Color Dark Yellow Light Tawanna Weight 51.483 kg Medical - DS: Data Labs on day of discharge: Labs from last 24 hours 10/16/18 10/16/18 10/16/18 03:40 03:40 03:40 WBC 10.0 RBC 3.12 L Hgb 11.6 L Hct 32.9 L MCV 105.4 H MCH 37.3 H MCHC 35.4 RDW 17.4 H Plt Count 97 L MPV 7.1 L Gran % 73.1 Lymph % (Auto) 13.6 L [place] % (Auto) 12.7 H Eos % (Auto) 0.3 Baso % (Auto) 0.3 Gran # 7.3 Lymph # (Auto) 1.4 L [place] # (Auto) 1.3 H Eos # (Auto) 0 Baso # (Auto) 0 PT 19.6 H INR 1.7 H Sodium 124 L Potassium 4.0 Chloride 93 L Carbon Dioxide 23 Anion Gap 8.0 BUN 10 Creatinine 0.5 L GFR Calculation 115 Glucose 102 Uric Acid 2.7 Calcium 7.8 L Phosphorus 2.2 L Magnesium 1.8 Total Bilirubin 3.6 H Direct Bilirubin 1.7 H GGT 65 H AST 70 H ALT 45 H Alkaline Phosphatase 111 Lactate Dehydrogenase 224 Total Protein 6.1 Albumin 2.3 L Globulin 3.8 H Albumin/Globulin Ratio 0.6 L Triglycerides 26 10/15/18 10/15/18 10/15/18 20:56 17:48 13:05 WBC RBC Hgb Hct MCV MCH MCHC RDW Plt Count MPV Gran % Lymph % (Auto) [place] % (Auto) Eos % (Auto) Baso % (Auto) Gran # Lymph # (Auto) [place] # (Auto) Eos # (Auto) Baso # (Auto) PT INR Sodium 120 L 120 L 119 L* Potassium 4.1 4.1 4.5 Chloride 89 L 87 L 85 L Carbon Dioxide 23 21 L 23 Anion Gap 8.0 12.0 11.0 BUN 9 9 9 Creatinine 0.5 L 0.6 L 0.5 L GFR Calculation 115 106 115 Glucose 94 119 H 107 H Uric Acid Calcium 7.6 L 8.0 L 8.1 L Phosphorus Magnesium Total Bilirubin Direct Bilirubin GGT AST ALT Alkaline Phosphatase Lactate Dehydrogenase Total Protein Albumin Globulin Albumin/Globulin Ratio Triglycerides Medical - DS: A/P - Patient/Caregiver Discharge Instructions Activity: increase activity as tolerated Diet: Regular Diet (1800ml/day fluid restrict) Prescriptions: Thiamine [Vitamin B1] 100 mg PO DAILY #60 tab - Follow up Plan Follow up with: Zee Bravo ARNP [Primary Care Provider] - Roly Gillis MD [Physician] - Disposition: Home Health Service Prognosis: Fair Rehab Potential: Fair Medical - DS: Qual - VTE Deep Vein Thrombosis/Pulmonary Embolism Present on Admission: No
[2018-10-16 13:17] LABS: Blood Urea Nitrogen 10 mg/dl (8-23)
[2018-10-16] MEDS ORDERED: MAGNESIUM HYDROXIDE 30 ML ORAL.SUSP PO PRN (17:01)
[2018-10-16] MEDS ORDERED: BISACODYL 10 MG SUPP.RECT PR PRN (17:01)
[2018-10-16 18:25] LABS: Blood Urea Nitrogen 11 mg/dl (8-23)
[2018-10-16] MEDS ORDERED: FUROSEMIDE 40 MG/4 ML VIAL IV ONE (20:01)
[2018-10-16] MEDS ORDERED: ALBUMIN HUMAN 12.5 GM/50 ML BAG IV ONE (20:01)
[2018-10-16] MEDS: DOCUSATE SODIUM 100 MG CAPSULE PO SCH (21:01)
[2018-10-17] MEDS: IPRATROPIUM/ALBUTEROL 3 ML AMPUL.NEB NEB SCH ×4 (01:00→20:03)
[2018-10-17] MEDS: 0.9 % SODIUM CHLORIDE 10 ML SYRINGE IV SCH ×3 (04:48→21:54)
[2018-10-17 05:56] LABS: Basophils # (Auto) 0 K/mcL (0.0-0.3); Basophils % (Auto) 0.4 % (0.0-2.0); Eosinophils # (Auto) 0 K/mcL (0.0-0.7); Eosinophils % (Auto) 0 % (0.0-7.0); Granulocytes % (Auto) 78.7 % (38.0-78.0); Lymphocytes # (Auto) 1.4 K/mcL (1.5-4.8); Lymphocytes % (Auto) 11.5 % (15.5-49.0); Mean Corpuscular HGB Conc 34.6 g/dL (31.0-36.0); Monocytes # (Auto) 1.1 K/mcL (0.1-0.9); Monocytes % (Auto) 9.4 % (1.0-12.0); Platelet Count 104 K/mcL (140-440); RBC 3.29 M/mcL (4.50-5.90); Red Cell Distribution Width 17.6 % (11.5-14.5)
[2018-10-17 06:42] LABS: Blood Urea Nitrogen 10 mg/dl (8-23)
--- NOTE | 2018-10-17 07:13 | Internal Med Progress Note ---
Medical - PN: Subj Patient information: Note initiated : 10/17/18 at 7:05 am Service Date, if different from initiated Date: [] Patient: Dontrell Grande a 63 y/o M admitted on 10/14/18 for Lab recheck. Chief Complaint: [] Interval history: Mr. Grande is a 63 year old M who presents to the emergency room for evaluation of abnormal labs. The patient has a history of severe alcohol intake, he was diagnosed with cirrhosis approximately 4-6 weeks ago, he stopped drinking since then. The patient has been followed up by Dr. Gonzalez. Initially the patient was started on Aldactone 100 mg and Lasix 40 mg, the patient still had some edema and abdominal distention and therefore over the last 2 weeks the dose of Aldactone has been doubled and according to the patient the dose of Lasix also was doubled. It is my understanding that the patient was taking 200 mg of Aldactone and 80 mg of Lasix. The patient was also on lisinopril hydrochlorothiazide which the patient's test was stopped a month ago. Today during his lab work it was found that his sodium level was low 121 he was therefore sent to the emergency room for further evaluation. He is accompanied by his . The patient admits to having some dizziness and disorientation for the last 2-3 days. He denies any other acute complaints or symptoms. He denies any headache changes in vision difficulty in swallowing chest pain shortness of breath no bowel bladder complaints no blood in the stools he denies any edema in the feet and notes that he still feels like his abdomen is distended but it is better than before. He is concerned about the fluid restriction and that he feels very thirsty at the same time he has been given so much water pills. The emergency room [id number] sodium was done sodium was 119 and the patient is being admitted to the hospital for further management. Repeat blood tests have been ordered 10/15 Patient seen and examined, no acute overnight events no new complaints. Chemistry on admission showed a sodium level of 116. Sodium level is slowly trending up, patient is on fluid restriction and 3% saline. TSH is normal, urine sodium 30, urine osm 501 10/16 Supple. No dizziness or lightheadedness. No new complaints. Sodium level improving and switching to oral salt tabs today. 10/17 Bowel movements now. Slept well. States his normal sodium level runs around 130. Review of Systems: denies headache/fever/chills/nausea/vomiting/chest or abdominal pain/cough/ dyspnea/diarrhea. Otherwise see above. - Constitutional Vitals: Vital Signs Temp Pulse Resp BP Pulse Ox 97.7 F 76 16 128/89 98 10/17/18 00:00 10/16/18 13:45 10/17/18 00:00 10/17/18 00:00 10/17/18 00:00 Period Temp Pulse Resp BP Sys/Clark Pulse Ox Last 24 Hr 97.7 F-99 F 76-80 16-20 103-138/61-89 96-99 Intake and Output 10/16/18 10/17/18 10/17/18 21:59 05:59 13:59 Intake Total 360 / 360 50 / 50 Output Total 325 / 325 Balance 360 / 360 -275 / -275 Weight 51.936 kg Intake & Output: Intake & Output 10/16/18 10/17/18 10/17/18 21:59 05:59 13:59 Intake Total 360 / 360 50 / 50 Output Total 325 / 325 Balance 360 / 360 -275 / -275 Weight 51.936 kg Intake: IV 50 / 50 Oral 360 / 360 Output: Void Amount 325 / 325 Other: Urine Color Dark Yellow Stool Size Large Stool Color Brown Stool Consistency Soft Dry and Hard Formed # Voids 1 # Bowel Movements 1 Exam: General: Alert, Awake, No acute Distress, cachectic Eyes/N/T: EOMI, Head/Neck: neck supple, CV: RRR, No murmurs, Pulm: Clear b/l, no wheezing/rhonchi/rales Abd: soft, protuberant, nontender, +BS x4 Ext: no clubbing/cyanosis/edema Neuro: Alert, no focal deficits, moves all extremities, Skin: warm/dry Medical - PN: Obj Da - Labs CBC & Chem 7: 10/17/18 04:00 10/17/18 04:00 Labs: Abnormal Lab Results 10/17/18 10/17/18 10/17/18 04:00 04:00 04:00 WBC 11.8 H RBC 3.29 L Hgb 12.1 L Hct 34.8 L MCV 106.0 H MCH 36.7 H RDW 17.6 H Plt Count 104 L MPV 7.2 L Gran % 78.7 H Lymph % (Auto) 11.5 L [place] % (Auto) Gran # 9.3 H Lymph # (Auto) 1.4 L [place] # (Auto) 1.1 H PT 18.6 H INR 1.6 H POC Sodium Sodium 126 L POC Chloride Chloride 92 L Carbon Dioxide Creatinine 0.5 L POC Creatinine Glucose Osmolality Calcium 8.3 L POC WB Ioniz Calcium Phosphorus Magnesium Total Bilirubin Direct Bilirubin GGT AST ALT Alkaline Phosphatase Albumin Globulin Albumin/Globulin Ratio Urine Urobilinogen 10/16/18 10/16/18 10/16/18 17:38 12:16 03:40 WBC RBC Hgb Hct MCV MCH RDW Plt Count MPV Gran % Lymph % (Auto) [place] % (Auto) Gran # Lymph # (Auto) [place] # (Auto) PT INR POC Sodium Sodium 123 L 126 L 124 L POC Chloride Chloride 94 L 94 L 93 L Carbon Dioxide 20 L Creatinine 0.5 L 0.4 L 0.5 L POC Creatinine Glucose 126 H Osmolality Calcium 8.4 L 8.1 L 7.8 L POC WB Ioniz Calcium Phosphorus 2.2 L Magnesium Total Bilirubin 3.6 H Direct Bilirubin 1.7 H GGT 65 H AST 70 H ALT 45 H Alkaline Phosphatase Albumin 2.3 L Globulin 3.8 H Albumin/Globulin Ratio 0.6 L Urine Urobilinogen 10/16/18 10/16/18 10/15/18 03:40 03:40 20:56 WBC RBC 3.12 L Hgb 11.6 L Hct 32.9 L MCV 105.4 H MCH 37.3 H RDW 17.4 H Plt Count 97 L MPV 7.1 L Gran % Lymph % (Auto) 13.6 L [place] % (Auto) 12.7 H Gran # Lymph # (Auto) 1.4 L [place] # (Auto) 1.3 H PT 19.6 H INR 1.7 H POC Sodium Sodium 120 L POC Chloride Chloride 89 L Carbon Dioxide Creatinine 0.5 L POC Creatinine Glucose Osmolality Calcium 7.6 L POC WB Ioniz Calcium Phosphorus Magnesium Total Bilirubin Direct Bilirubin GGT AST ALT Alkaline Phosphatase Albumin Globulin Albumin/Globulin Ratio Urine Urobilinogen 10/15/18 10/15/18 10/15/18 17:48 13:05 08:33 WBC RBC Hgb Hct MCV MCH RDW Plt Count MPV Gran % Lymph % (Auto) [place] % (Auto) Gran # Lymph # (Auto) [place] # (Auto) PT INR POC Sodium Sodium 120 L 119 L* 118 L* POC Chloride Chloride 87 L 85 L 84 L Carbon Dioxide 21 L Creatinine 0.6 L 0.5 L 0.5 L POC Creatinine Glucose 119 H 107 H Osmolality Calcium 8.0 L 8.1 L 8.2 L POC WB Ioniz Calcium Phosphorus Magnesium Total Bilirubin Direct Bilirubin GGT AST ALT Alkaline Phosphatase Albumin Globulin Albumin/Globulin Ratio Urine Urobilinogen 10/15/18 10/15/18 10/15/18 03:40 03:40 03:40 WBC RBC 3.15 L Hgb 11.4 L Hct 32.7 L MCV 103.9 H MCH 36.3 H RDW 16.9 H Plt Count 112 L MPV 7.2 L Gran % Lymph % (Auto) 12.0 L [place] % (Auto) Gran # Lymph # (Auto) 1.2 L [place] # (Auto) 1.1 H PT 19.4 H INR 1.6 H POC Sodium Sodium 117 L* POC Chloride Chloride 83 L Carbon Dioxide Creatinine 0.5 L POC Creatinine Glucose 134 H Osmolality Calcium 7.9 L POC WB Ioniz Calcium Phosphorus 2.4 L Magnesium 1.4 L Total Bilirubin 3.5 H Direct Bilirubin 1.7 H GGT 65 H AST 73 H ALT 46 H Alkaline Phosphatase Albumin 2.3 L Globulin 3.9 H Albumin/Globulin Ratio 0.6 L Urine Urobilinogen 10/15/18 10/14/18 10/14/18 01:35 20:50 20:50 WBC RBC 3.62 L Hgb 13.1 L Hct 37.3 L MCV 103.0 H MCH 36.2 H RDW 15.6 H Plt Count MPV 6.8 L Gran % Lymph % (Auto) [place] % (Auto) Gran # Lymph # (Auto) [place] # (Auto) 1.2 H PT INR POC Sodium Sodium 118 L* 116 L* POC Chloride Chloride 81 L 81 L Carbon Dioxide Creatinine 0.6 L 0.6 L POC Creatinine Glucose 130 H Osmolality Calcium 8.2 L 8.5 L POC WB Ioniz Calcium Phosphorus Magnesium Total Bilirubin 4.3 H Direct Bilirubin GGT AST 98 H ALT 55 H Alkaline Phosphatase 121 H Albumin 2.7 L Globulin 4.5 H Albumin/Globulin Ratio 0.6 L Urine Urobilinogen 1210/14/18 10/14/18 20:48 20:30 01:55 WBC RBC Hgb Hct MCV MCH RDW Plt Count MPV Gran % Lymph % (Auto) [place] % (Auto) Gran # Lymph # (Auto) [place] # (Auto) PT INR POC Sodium 119 L Sodium POC Chloride 81 L Chloride Carbon Dioxide Creatinine POC Creatinine 0.6 L Glucose Osmolality 248 L Calcium POC WB Ioniz Calcium 1.04 L Phosphorus Magnesium Total Bilirubin Direct Bilirubin GGT AST ALT Alkaline Phosphatase Albumin Globulin Albumin/Globulin Ratio Urine Urobilinogen 2.0 A Meds: Medications Acetaminophen (Tylenol) 650 mg PO Q12HP PRN PRN Reason: PAIN/FEVER > 101 Albuterol Sulfate (Ventolin) 1 puff INH Q4HP PRN PRN Reason: Shortness Of Breath Albuterol/Ipratropium (Duoneb) 3 ml NEB Q6HRT [facility] Last Admin: 10/17/18 01:00 Dose: Not Given Bisacodyl (Dulcolax) 10 mg AR Q2-3DAYS PRN PRN Reason: Constipation Docusate Sodium (Colace) 100 mg PO BID [facility] Last Admin: 10/16/18 21:01 Dose: 100 mg Furosemide (Lasix) 40 mg PO DAILY [facility] Last Admin: 10/16/18 10:04 Dose: 40 mg Heparin Sodium (Porcine) (Heparin) 5,000 unit SQ Q12 [facility] Last Admin: 10/16/18 21:00 Dose: 5,000 unit Magnesium Hydroxide (Milk Of Magnesia) 30 ml PO DAILYP PRN PRN Reason: Constipation Last Admin: 10/16/18 17:29 Dose: 30 ml Naloxone HCl (Narcan) 0.1 mg IV Q2MIN PRN PRN Reason: Opiate Reversal Ondansetron HCl (Zofran) 4 mg IV Q4HP PRN PRN Reason: Nausea And Vomiting Sodium Chloride (Saline Flush) 10 ml IV Q8 [facility] Last Admin: 10/17/18 04:48 Dose: 10 ml Sodium Chloride (Sodium Chloride) 1 gm PO TID [facility] Last Admin: 10/16/18 21:01 Dose: 1 gm Medical - PN: A/P - Time Spent With Patient Total time spent is greater than 50% in coordination of care (as documented) at patient's floor/unit and/or counseling patient: - Narrative A/P Narrative: A: *Hyponatremia, symptomatic (was on lasix/aldactone, dose was doubled 2 weeks before presentation) acute on chronic: he states he normally runs about 130 -dizziness improved -116 on admit -urine sodium 30, Urine osm elevated -protein energy malnutrition could also be playing a role, alb is 2.3 *Alcoholic Cirrhosis: T jessica stable, -follow up outpatient with Dr Gillis -Sequela of thrombocytopenia/coagulopathy/hypoalbuminemia *Emphysema: stable, *HTN: BP stable, not on any meds, was on lisinopril-hctz, but appears lasix and aldactone were helping. *Pulmonary Hypertension: outpatient follow up *Severe Malnourishment: *Hypomag: improved P: -oral salt tabs -fluid restrict 1500cc, lasix -aldactone held for now -continue home inhalers -duonebs -Dietary referral; encourage oral intake -replete mag -pp: hep sq Full code Medical - PN: Qual - VTE Deep Vein Thrombosis/Pulmonary Embolism Present on Admission: No
[2018-10-17] MEDS ORDERED: ALBUMIN HUMAN 12.5 GM/50 ML BAG IV ONE (08:00)
[2018-10-17] MEDS: FUROSEMIDE 20 MG/2 ML VIAL IV SCH ×2 (09:35→16:06)
[2018-10-17] MEDS: SODIUM CHLORIDE 1 GM TABLET PO SCH ×3 (09:35→21:34)
[2018-10-17] MEDS: DOCUSATE SODIUM 100 MG CAPSULE PO SCH ×2 (09:35→21:34)
[2018-10-17 12:50] LABS: Blood Urea Nitrogen 10 mg/dl (8-23)
[2018-10-17] MEDS: HEPARIN 5,000 UNIT/ML VIAL SQ SCH ×2 (13:15→21:35)
[2018-10-18] MEDS: IPRATROPIUM/ALBUTEROL 3 ML AMPUL.NEB NEB SCH ×2 (01:00→07:36)
[2018-10-18] MEDS: 0.9 % SODIUM CHLORIDE 10 ML SYRINGE IV SCH (06:04)
[2018-10-18 06:34] LABS: Blood Urea Nitrogen 11 mg/dl (8-23)
[2018-10-18] MEDS ORDERED: THIAMINE 100 MG in 0.9 % SODIUM CHLORIDE 50 ML IV ONE (08:22)
[2018-10-18] MEDS: FUROSEMIDE 20 MG/2 ML VIAL IV SCH (09:34)
[2018-10-18] MEDS: SODIUM CHLORIDE 1 GM TABLET PO SCH (09:35)
[2018-10-18] MEDS: HEPARIN 5,000 UNIT/ML VIAL SQ SCH (09:35)
[2018-10-18] MEDS: DOCUSATE SODIUM 100 MG CAPSULE PO SCH (09:35)
[2018-10-18] MEDS ORDERED: IPRATROPIUM/ALBUTEROL 3 ML AMPUL.NEB NEB PRN (10:06)
== END 2018-10-18 11:20 | disposition home health service (06) | DRG 640 ==
LOC: ED 20:22 → ICU 22:55
PROVIDERS: ADMIT Internal Medicine; ATTEND Internal Medicine

== ENCOUNTER 2018-11-06 19:57 | Inpatient (IN) ==
--- NOTE | 2018-11-06 20:37 | Emergency Department Note ---
SOB HPI - General Chief Complaint: Shortness of Breath/Dyspnea Stated Complaint: Short of breath Time Seen by Provider: 11/06/18 20:22 Mode of arrival: ambulatory - History of Present Illness 63-year-old male presents with cough that is worse than normal and shortness of breath that is worse than normal. States he has COPD. Also has a history of low sodium. Family member with him states he seems a little bit off like he was last time when his sodium was 116. No fever or chills. No nausea, vomiting, or diarrhea. States the cough and shortness of breath or chronic but worse than normal. No sore throat or ear pain. No body aches. He has been trying cough drops at home with no relief. States he does have chronic pedal edema and it is no worse than usual. His family member with him states that mentally he is not quite acting the same. - Related Data Home Medications Medication Instructions Recorded Confirmed Albuterol Sulfate [Proair Hfa] 8.5 gm IH Q4HP PRN 11/29/17 11/06/18 Ipratropium/Albuterol [Duoneb] 3 ml NEB Q4HP PRN 11/29/17 11/06/18 Spironolactone [Aldactone] 150 mg PO DAILY 10/14/18 11/06/18 Glucosamine HCl/MSM [Sm 1,500 mg PO 2-3XW 10/15/18 11/06/18 Glucosamine & MSM Tablet] Magnesium Oxide [Magnesium] 250 mg PO 2-3XW 10/15/18 11/06/18 Potassium Gluconate 99 mg PO DAILY 10/15/18 11/06/18 Furosemide [Lasix] 60 mg PO DAILY 11/06/18 11/06/18 Omeprazole [PriLOSEC] 20 mg PO ACB 11/06/18 11/06/18 Previous Rx's Medication Instructions Recorded Thiamine [Vitamin B1] 100 mg PO DAILY #60 tab 10/18/18 Allergies Allergy/AdvReac Type Severity Reaction Status Date / Time No Known Drug Allergies Allergy Verified 11/06/18 20:03 Review of Systems All systems ED: reviewed and negative except as stated. Past Medical History - Past Medical History [facility] Narrative: Medical History (Last Updated 10/14/18 @ 21:37 by Jose Khan DO) Pulmonary hypertension (Chronic) Alcoholic liver disease, unspecified (Chronic) Hyponatremia (Chronic) Cachexia (Chronic) Hypertension, essential (Chronic) Emphysema, unspecified (Chronic) Medical history: Reports: COPD, hypertension, other (C. difficile history was treated and resolved). Denies: CHF, CVA, DM, hyperlipidemia, hypothyroidism, myocardial infarction, seizures, TIA Psychiatric history: Denies: anxiety, depression Surgical history ED: Reports: appendectomy, herniorrhaphy, tonsillectomy - Social History smoking status: Former smoker Alcohol use: Reports: None (quit early Sep 2018; was 6-8 beer/day.), Daily Drug use: Reports: none. Denies: marijuana Physical Exam Limitations: no limitations General appearance: alert, in no apparent distress Head: atraumatic, normocephalic, normal inspection Eye: Present: normal appearance. Absent: conjunctival injection ENT: normal exam, normal oropharynx, mucous membranes moist, TM's normal bilaterally, normal external ear exam Neck: Present: normal inspection, trachea midline. Absent: tenderness, lymp hadenopathy Chest: Present: symmetric chest wall rise Respiratory: Present: wheezes (Faint wheezes in the bases bilaterally otherwise clear throughout). Absent: respiratory distress, accessory muscle use Cardiovascular: Present: regular rate, normal heart sounds Extremities: Present: normal capillary refill, pedal edema (1+ edema bilaterally) Neurological: Present: alert, oriented X3 Psychiatric: Present: normal affect, normal mood Skin: Present: warm, dry, intact, normal color. Absent: rash, cyanosis, diaphoresis, erythema Course Course Narrative: At 2145 I did speak with the hospitalist, Dr. Malone who agrees to admit this patient. Vital Signs Temperature 97.2 F 11/06/18 19:59 Pulse Rate 88 11/06/18 19:59 Respiratory Rate 20 11/06/18 19:59 Blood Pressure 115/61 11/06/18 19:59 Pulse Oximetry (%) 98 11/06/18 19:59 Temperature 97.2 F 11/06/18 19:59 Pulse Rate 83 11/06/18 20:57 Respiratory Rate 20 11/06/18 19:59 Blood Pressure 125/72 11/06/18 20:46 Pulse Oximetry (%) 96 11/06/18 20:57 Shortness of Breath/Dyspnea - Lab Data Lab results reviewed: Yes I reviewed the patient's lab results. Result diagrams: 11/06/18 20:30 11/06/18 20:30 Lab Results 11/06/18 11/06/18 11/06/18 Range/Units 20:30 20:30 20:30 WBC 8.4 (4.5-11.0) K/mcL RBC 3.59 L (4.50-5.90) M/mcL Hgb 12.6 L (13.5-16.5) g/dL Hct 37.6 L (41.0-55.0) % POC Hct 39.0 L (41.0-55.0) % MCV 104.9 H (80.0-100.0) fL MCH 35.3 H (26.0-34.0) pg MCHC 33.6 (31.0-36.0) g/dL RDW 16.3 H (11.5-14.5) % Plt Count 163 (140-440) K/mcL MPV 6.2 L (7.4-10.4) fL Gran % 69.2 (38.0-78.0) % Lymph % (Auto) 15.8 (15.5-49.0) % [place] % (Auto) 13.6 H (1.0-12.0) % Eos % (Auto) 0.5 (0.0-7.0) % Baso % (Auto) 0.9 (0.0-2.0) % Gran # 5.8 (1.8-8.0) K/mcL Lymph # (Auto) 1.3 L (1.5-4.8) K/mcL [place] # (Auto) 1.1 H (0.1-0.9) K/mcL Eos # (Auto) 0 (0.0-0.7) K/mcL Baso # (Auto) 0.1 (0.0-0.3) K/mcL POC Sodium 129 L (133-145) mmol/L Sodium 123 L (133-145) mmol/L POC Potassium 4.0 (3.3-5.1) mmol/L Potassium 3.9 (3.3-5.1) mmol/L POC Chloride 90 L (96-108) mmol/L Chloride 87 L (96-108) mmol/L Carbon Dioxide 24 (22-30) mmol/L POC Total CO2 24 (22-30) mmol/L Anion Gap 12.0 (8-16) POC BUN 8 (8-23) mg/dl BUN 9 (8-23) mg/dl Creatinine 0.6 L (0.7-1.2) mg/dl POC Creatinine 0.5 L (0.7-1.2) mg/dl GFR Calculation 106 Glucose 98 (70-105) mg/dL POC Glucose 93 (70-105) mg/dL Calcium 8.6 (8.6-10.4) mg/dl POC WB Ioniz Calcium 1.12 L (1.16-1.32) mmol/L Total Bilirubin 2.9 H (0.0-1.0) mg/dL AST 63 H (0-37) U/l ALT 44 H (0-40) U/l Alkaline Phosphatase 112 (39-117) U/L NT-Pro-B Natriuret Pep < 50.0 (0-125) pg/ml Total Protein 7.2 (5.9-8.4) gm/dL Albumin 2.7 L (3.2-5.2) gm/dL Globulin 4.5 H (2.2-3.7) gm/dL Albumin/Globulin Ratio 0.6 L (1.0-2.3) - Radiology Data Radiology results reviewed: Yes I reviewed the patient's radiology results. Disposition Pt seen by STRUCTURES ENGINEER/PA only: Yes Clinical Impression: Hyponatremia, Mental status alteration Disposition: Xfer As Outpt/Obs ([facility]) Condition: Fair Referrals: Zee Bravo ARNP [Primary Care Provider] - Time of Disposition: 21:47
[2018-11-06 20:55] LABS: Basophils # (Auto) 0.1 K/mcL (0.0-0.3); Basophils % (Auto) 0.9 % (0.0-2.0); Eosinophils # (Auto) 0 K/mcL (0.0-0.7); Eosinophils % (Auto) 0.5 % (0.0-7.0); Granulocytes % (Auto) 69.2 % (38.0-78.0); Lymphocytes # (Auto) 1.3 K/mcL (1.5-4.8); Lymphocytes % (Auto) 15.8 % (15.5-49.0); Mean Cell Volume 104.9 fL (80.0-100.0); Mean Corpuscular HGB Conc 33.6 g/dL (31.0-36.0); Monocytes # (Auto) 1.1 K/mcL (0.1-0.9); Monocytes % (Auto) 13.6 % (1.0-12.0); Platelet Count 163 K/mcL (140-440); RBC 3.59 M/mcL (4.50-5.90); Red Cell Distribution Width 16.3 % (11.5-14.5)
[2018-11-06 21:18] LABS: proBNP < 50.0 pg/ml (0-125)
[2018-11-06 21:21] LABS: ALT/SGPT 44 U/l (0-40); Albumin 2.7 gm/dL (3.2-5.2); Albumin/Globulin Ratio 0.6 (1.0-2.3); Alkaline Phosphatase 112 U/L (39-117); Blood Urea Nitrogen 9 mg/dl (8-23)
[2018-11-06] MEDS ORDERED: 0.9 % SODIUM CHLORIDE 1,000 ML IV SCH (21:30)
--- NOTE | 2018-11-06 22:22 | Internal Med History&Physical ---
Medical - H&P: [facility] Patient information: Note initiated : 11/06/18 at 10:19 pm Service Date, if different from initiated Date: [] Patient: Dontrell Grande a 63 y/o M admitted on for Short of breath. Chief Complaint: [] History of present illness: Mr. Grande is a 63 year old M with h/o copd, presents to the Er today with complaints of not feeling self, and shortness of breath. As per the patient he has been short of breath x 3 days, progressively getting worse. He is chronically short of breath. The patient denies any fever chills cough chest pain abdominal pain nausea vomiting headache any bleeding from anywh ere. He has increased edema in his lower extremities. The patient was recently admitted to the hospital for acute hyponatremia. The patient had been followed by GI physician and his dose of diuretics was increased. The patient was also noncompliant with his fluid restriction since discharge however progressively has been taking in more fluid. The patient admits to being not him self, and the told the Er provider that he seems a bit more confused than usual. The patient admits to having d izziness. IN the ER the patient was afebrile, 97.2 heart rate 88 blood pressure 115/61 respirations 20 saturating 98% on room air. Labs show WBC count of 8.4 hemoglobin 12.6 platelet 163. Sodium is low at 123, potassium 3.9 bicarbonate 24 creatinine 0.6 total bilirubin is 2.9 AST 63 ALT 44 alk phos 112 albumin 2.7 TSH done last admission was normal All systems: reviewed and no additional remarkable complaints except as stated (As per HPI rest negative) Medical - H&P: PMH Medical history: Medical History (Last Updated 10/14/18 @ 21:37 by Jose Khan DO) Pulmonary hypertension (Chronic) Alcoholic liver disease, unspecified (Chronic) Hyponatremia (Chronic) Cachexia (Chronic) Hypertension, essential (Chronic) Emphysema, unspecified (Chronic) Medical - H&P: Meds Home Medications Medication Instructions Recorded Confirmed Type Albuterol Sulfate [Proair Hfa] 8.5 gm IH Q4HP PRN 11/29/17 11/06/18 History Ipratropium/Albuterol [Duoneb] 3 ml NEB Q4HP PRN 11/29/17 11/06/18 History Spironolactone [Aldactone] 150 mg PO DAILY 10/14/18 11/06/18 History Glucosamine HCl/MSM [Sm 1,500 mg PO 2-3XW 10/15/18 11/06/18 History Glucosamine & MSM Tablet] Magnesium Oxide [Magnesium] 250 mg PO 2-3XW 10/15/18 11/06/18 History Potassium Gluconate 99 mg PO DAILY 10/15/18 11/06/18 History Thiamine [Vitamin B1] 100 mg PO DAILY #60 tab 10/18/18 11/06/18 Rx Furosemide [Lasix] 60 mg PO DAILY 11/06/18 11/06/18 History Omeprazole [PriLOSEC] 20 mg PO ACB 11/06/18 11/06/18 History Allergies Allergy/AdvReac Type Severity Reaction Status Date / Time No Known Drug Allergies Allergy Verified 11/06/18 20:03 Medical - H&P: Exam - Constitutional Vitals: Temp Pulse Resp BP Pulse Ox 97.2 F 81 15 122/67 96 11/06/18 19:59 11/06/18 22:07 11/06/18 22:07 11/06/18 22:01 11/06/18 22:07 Medical - H&P: Reslt - Labs CBC & Chem 7: 11/06/18 20:30 11/06/18 20:30 Labs: Short CBC 11/06/18 Range/Units 20:30 WBC 8.4 (4.5-11.0) K/mcL Hgb 12.6 L (13.5-16.5) g/dL Hct 37.6 L (41.0-55.0) % Plt Count 163 (140-440) K/mcL BMP 11/06/18 20:30 Sodium 123 L Potassium 3.9 Chloride 87 L Carbon Dioxide 24 BUN 9 Creatinine 0.6 L Glucose 98 Calcium 8.6 Liver Function 11/06/18 Range/Units 20:30 Total Bilirubin 2.9 H (0.0-1.0) mg/dL AST 63 H (0-37) U/l ALT 44 H (0-40) U/l Alkaline Phosphatase 112 (39-117) U/L Albumin 2.7 L (3.2-5.2) gm/dL
--- NOTE | 2018-11-06 22:29 | Internal Med History&Physical ---
Medical - H&P: [facility] Patient information: Note initiated : 11/06/18 at 10:26 pm Service Date, if different from initiated Date: [] Patient: Dontrell Grande a 63 y/o M admitted on for Short of breath. Chief Complaint: [] History of present illness: Mr. Grande is a 63 year old M with h/o copd, presents to the Er today with complaints of not feeling self, and shortness of breath. As per the patient he has been short of breath x 3 days, progressively getting worse. He is chronically short of breath. The patient denies any fever chills cough chest pain abdominal pain nausea vomiting headache any bleeding from anywh ere. He has increased edema in his lower extremities. The patient was recently admitted to the hospital for acute hyponatremia. The patient had been followed by GI physician and his dose of diuretics was increased. The patient was also noncompliant with his fluid restriction since discharge however progressively has been taking in more fluid. The patient admits to being not him self, and the told the Er provider that he seems a bit more confused than usual. The patient admits to having d izziness. IN the ER the patient was afebrile, 97.2 heart rate 88 blood pressure 115/61 respirations 20 saturating 98% on room air. Labs show WBC count of 8.4 hemoglobin 12.6 platelet 163. Sodium is low at 123, potassium 3.9 bicarbonate 24 creatinine 0.6 total bilirubin is 2.9 AST 63 ALT 44 alk phos 112 albumin 2.7 TSH done last admission was normal. All systems: reviewed and no additional remarkable complaints except as stated (as per HPI) Medical - H&P: PMH Medical history: Medical History (Last Updated 10/14/18 @ 21:37 by Jose Khan DO) Pulmonary hypertension (Chronic) Alcoholic liver disease, unspecified (Chronic) Hyponatremia (Chronic) Cachexia (Chronic) Hypertension, essential (Chronic) Emphysema, unspecified (Chronic) Surgical history: History of appendectomy History of abdominal hernia Pertinent family history: Mother with history of emphysema Social history: Heavy alcohol user quit a month ago Ex-smoker nearly [id number] history of smoking Retired Lives with Medical - H&P: Meds Home Medications Medication Instructions Recorded Confirmed Type Albuterol Sulfate [Proair Hfa] 8.5 gm IH Q4HP PRN 11/29/17 11/06/18 History Ipratropium/Albuterol [Duoneb] 3 ml NEB Q4HP PRN 11/29/17 11/06/18 History Spironolactone [Aldactone] 150 mg PO DAILY 10/14/18 11/06/18 History Glucosamine HCl/MSM [Sm 1,500 mg PO 2-3XW 10/15/18 11/06/18 History Glucosamine & MSM Tablet] Magnesium Oxide [Magnesium] 250 mg PO 2-3XW 10/15/18 11/06/18 History Potassium Gluconate 99 mg PO DAILY 10/15/18 11/06/18 History Thiamine [Vitamin B1] 100 mg PO DAILY #60 tab 10/18/18 11/06/18 Rx Furosemide [Lasix] 60 mg PO DAILY 11/06/18 11/06/18 History Omeprazole [PriLOSEC] 20 mg PO ACB 11/06/18 11/06/18 History Allergies Allergy/AdvReac Type Severity Reaction Status Date / Time No Known Drug Allergies Allergy Verified 11/06/18 20:03 Medical - H&P: Exam - Constitutional Vitals: Temp Pulse Resp BP Pulse Ox 97.2 F 81 15 122/67 96 11/06/18 19:59 11/06/18 22:07 11/06/18 22:07 11/06/18 22:01 11/06/18 22:07 Exam: GENERAL: The patient is a well-developed, well-nourished in no apparent distress. Is alert and oriented x3. VITAL SIGNS: Reviewed and as noted elsewhere. HEENT: Head is normocephalic and atraumatic. Extraocular muscles are intact. Pupils are equal, round, and reactive to light. Nares appeared normal. Mouth appears any without lesions. Mucous membranes are moist. NECK: Normal to inspection, Supple, No lymphadenopathy or thyromegaly. LUNGS: Air entry equal on both sides, but bilaterally decreased, no wheezing, crackles or rhonchi noted. No accessory muscles of respiration HEART: Regular rate and rhythm normal, S1 and S2 heard, no Gallop, S3 or Rub Noted, No Gross murmur heard. ABDOMEN: Soft, nontender, and nondistended. Positive bowel sounds. No hepatosplenomegaly was noted. EXTREMITIES: No cyanosis, clubbing, rash, lesions . Edema +++ NEUROLOGIC: Cranial nerves II through XII are grossly intact. Motor and Sensory System Grossly Intact PSYCHIATRIC: Normal affect, Normal Mood. Appropriate Behavior. SKIN: No ulceration or wounds noted, No jaundice, No rash noted. Medical - H&P: Reslt - Labs CBC & Chem 7: 11/06/18 20:30 11/06/18 20:30 Labs: Short CBC 11/06/18 Range/Units 20:30 WBC 8.4 (4.5-11.0) K/mcL Hgb 12.6 L (13.5-16.5) g/dL Hct 37.6 L (41.0-55.0) % Plt Count 163 (140-440) K/mcL BMP 11/06/18 20:30 Sodium 123 L Potassium 3.9 Chloride 87 L Carbon Dioxide 24 BUN 9 Creatinine 0.6 L Glucose 98 Calcium 8.6 Liver Function 11/06/18 Range/Units 20:30 Total Bilirubin 2.9 H (0.0-1.0) mg/dL AST 63 H (0-37) U/l ALT 44 H (0-40) U/l Alkaline Phosphatase 112 (39-117) U/L Albumin 2.7 L (3.2-5.2) gm/dL Medical - H&P: A/P - Narrative A/P Narrative: A/P Hyponatremia, due to cirrhosis, and possibly low protein intake, cannot rule out siadh Cirrhosis, Alcoholic Hypoalbuminemia COPD/Shortness of breath Pulmonary Hypertension Plan Admit to med surg Fluid restriction to 1500ml monitor sodium closely resume home meds. I am not planning on cutting the diuretics as the GI provider has just increased them. Pt will likely need to be on diuretics, aldactone and lasix, thoguh I believe aldactone is worsening the hyponatremia. will see how he does on sodium tablets and fluid restriction. check urine sodium, urine osm, cortisol level. get echo to r/o any cardiac etiology for fluid overload. duonebs for now, Pt does not appear to be in copd exacerbation DVT heparin sq Regular diet full code.
[2018-11-06 22:38] LABS: ABG Methemoglobin 0 % (0.4-1.5); VBG Base Excess 1.2 (-2.0-2.0); VBG Oxygen Saturation 84.8 % (40.0-70.0); VBG PCO2 32.1 mmHg (41.0-51.0); VBG PH 7.49 U (7.32-7.42); VBG PO2 62 mmHg (25-40)
[2018-11-06] MEDS ORDERED: ONDANSETRON 4 MG/2 ML VIAL IV PRN (22:57)
[2018-11-06] MEDS ORDERED: GLUCOSAMINE HCL PO SCH (22:57)
[2018-11-06] MEDS ORDERED: ALBUTEROL SULFATE 2.5 MG/3 ML NEBULIZER NEB PRN (22:57)
[2018-11-06] MEDS ORDERED: FUROSEMIDE 40 MG/4 ML VIAL IV ONE ×2 (22:57→22:58)
[2018-11-06] MEDS ORDERED: NALOXONE HCL 0.4 MG/ML VIAL IV PRN (22:57)
[2018-11-06] MEDS ORDERED: [UNRECOGNIZED DRUG - OTHER] PO SCH (22:57)
[2018-11-06] MEDS ORDERED: MSM PO SCH (22:57)
[2018-11-07 00:17] LABS: Osmolality,Urine 524 mOsm/kg (80-1000)
[2018-11-07] MEDS: SODIUM CHLORIDE 1 GM TABLET PO SCH ×4 (00:28→22:17)
[2018-11-07] MEDS ORDERED: IPRATROPIUM/ALBUTEROL 3 ML AMPUL.NEB NEB ONE (00:36)
[2018-11-07] MEDS: IPRATROPIUM/ALBUTEROL 3 ML AMPUL.NEB NEB SCH ×5 (00:37→22:39)
[2018-11-07 06:33] LABS: ALT/SGPT 42 U/l (0-40); Albumin 2.6 gm/dL (3.2-5.2); Albumin/Globulin Ratio 0.6 (1.0-2.3); Alkaline Phosphatase 107 U/L (39-117); Bilirubin,Direct 1.2 mg/dL (0.0-0.3); Blood Urea Nitrogen 9 mg/dl (8-23); Gamma Glutamyl Transpeptidase 61 U/L (8-61); Uric Acid 3.6 mg/dL (2.5-8.0)
[2018-11-07] MEDS ORDERED: MAGNESIUM SULFATE 2 GM/50 ML BAG IV ONE (07:35)
[2018-11-07] MEDS ORDERED: POTASSIUM CHLORIDE 20 MEQ PACKET PO ONE (07:35)
[2018-11-07] MEDS: OMEPRAZOLE 20 MG CAPSULE PO SCH (07:39)
--- NOTE | 2018-11-07 07:43 | XRay Report ---
HISTORY: Dyspnea FINDINGS: The lungs are hyperinflated due to moderate COPD. There is no evidence of pneumonia, mass, congestive heart failure or pleural effusion. The heart size is normal. There has been no significant change since 10/14/18. IMPRESSION: COPD and no acute abnormality Interpreted and Authenticated by: Sebastien Baeza 11/07/18
--- NOTE | 2018-11-07 08:31 | Emergency Department Note ---
ED Note Addendum Note Addendum: I discussed this case with the mid-level provider and agree with the assessment and plan for admission.
[2018-11-07] MEDS ORDERED: POTASSIUM GLUCONATE 99 MG PO SCH (09:00)
[2018-11-07] MEDS: FUROSEMIDE 40 MG TABLET PO SCH (09:16)
[2018-11-07] MEDS: MAGNESIUM OXIDE 400 MG TABLET PO SCH (09:17)
[2018-11-07] MEDS: THIAMINE 100 MG TABLET PO SCH (09:17)
[2018-11-07] MEDS: SPIRONOLACTONE 25 MG TABLET PO SCH (09:17)
[2018-11-07] MEDS: HEPARIN 5,000 UNIT/ML VIAL SQ SCH ×2 (09:21→22:17)
[2018-11-07] MEDS: 0.9 % SODIUM CHLORIDE 10 ML SYRINGE IV SCH ×3 (09:25→22:17)
[2018-11-07 16:47] LABS: Blood Urea Nitrogen 11 mg/dl (8-23)
--- NOTE | 2018-11-07 17:20 | Internal Med Progress Note ---
Medical - PN: Subj Patient information: Note initiated : 11/07/18 at 5:18 pm Service Date, if different from initiated Date: [] Patient: Dontrell Grande a 63 y/o M admitted on 11/06/18 for Short of breath. Chief Complaint: [] Interval history: Mr. Grande is a 63 year old M with h/o copd, presents to the Er today with complaints of not feeling self, and shortness of breath. As per the patient he has been short of breath x 3 days, progressively getting worse. He is chronically short of breath. The patient denies any fever chills cough chest pain abdominal pain nausea vomiting headache any bleeding from anywhere. He has increased edema in his lower extremities. The patient was recently admitted to the hospital for acute hyponatremia. The patient had been followed by GI physician and his dose of diuretics was increased. The patient was also noncompliant with his fluid restriction since discharge however progressively has been taking in more fluid. The patient admits to being not him self, and the told the Er provider that he seems a bit more confused than usual. The patient admits to having diz ziness. IN the ER the patient was afebrile, 97.2 heart rate 88 blood pressure 115/61 respirations 20 saturating 98% on room air. Labs show WBC count of 8.4 hemoglobin 12.6 platelet 163. Sodium is low at 123, potassium 3.9 bicarbonate 24 creatinine 0.6 total bilirubin is 2.9 AST 63 ALT 44 alk phos 112 albumin 2.7 TSH done last admission was normal. 11/07 Patient seen and examined, no acute overnight events. Sodium improved to 125. Patient has no new complaints or concerns Pertinent ROS: Denies headache, dizziness Denies chest pain, palpitations Denies cough (stable shortness of breath) Denies abdominal pain, nausea or vomiting. - Constitutional Vitals: Vital Signs Temp Pulse Resp BP Pulse Ox 97.9 F 86 18 115/69 92 11/07/18 15:44 11/07/18 15:44 11/07/18 15:44 11/07/18 15:44 11/07/18 15:44 Period Temp Pulse Resp BP Sys/Clark Pulse Ox Last 24 Hr 97.1 F-98.8 F 80-93 14-22 104-137/52-72 91-98 Intake and Output 11/07/18 11/07/18 11/07/18 05:59 13:59 21:59 Intake Total 143 50 750 Output Total 1200 200 200 Balance -1057 -150 550 Weight 110 lb 110 lb Patient Weight 11/08/18 05:59 Weight 110 lb Intake & Output: Intake & Output 11/07/18 11/07/18 11/07/18 05:59 13:59 21:59 Intake Total 143 50 750 Output Total 1200 200 200 Balance -1057 -150 550 Weight 110 lb 110 lb Intake: IV 143 50 Sodium Chloride 0.9% 1,000 ml @ 143 150 mls/hr IV .[id number] LILIA Rx#: [id number] Oral 750 Output: Void Amount 1200 200 200 Other: Meal Lunch Percent of Meal Consumed 75% # Voids 1 Exam: Constitutional; Afebrile, cooperative, alert, not in distress. Respiratory system: Air Entry equal on both sides, No crackles or wheezing, no rhonchi. CVS- Rate rhythm regular, S1,S2 heard, no gallop, no rub. Abdomen- Soft nontender abdomen, no organomegaly, no tenderness, no guarding or rigidity, FINAL FINISHER FORGING DIES- AOOx2, moving all extremities, no gross focal deficit noted. Edema persistent jessica lower extremities Medical - PN: Obj Da - Labs CBC & Chem 7: 11/06/18 20:30 11/07/18 16:00 Labs: Abnormal Lab Results 11/07/18 11/07/18 11/06/18 16:00 04:38 22:21 RBC Hgb Hct POC Hct MCV MCH RDW MPV [place] % (Auto) Lymph # (Auto) [place] # (Auto) ABG Methemoglobin 0 L VBG pH 7.49 H VBG pCO2 32.1 L VBG pO2 62 H VBG O2 Saturation 84.8 H Carboxyhemoglobin 3.8 H Total Hemoglobin 12.1 L POC Sodium Sodium 125 L 125 L POC Chloride Chloride 94 L 93 L Creatinine 0.6 L 0.6 L POC Creatinine Glucose 112 H Calcium 8.5 L POC WB Ioniz Calcium Magnesium 1.5 L Total Bilirubin 3.1 H Direct Bilirubin 1.2 H AST 62 H ALT 42 H Lactate Dehydrogenase 267 H Albumin 2.6 L Globulin 4.3 H Albumin/Globulin Ratio 0.6 L 01/20/19 01/20/19 01/20/19 20:30 20:30 20:30 RBC 3.59 L Hgb 12.6 L Hct 37.6 L POC Hct 39.0 L MCV 104.9 H MCH 35.3 H RDW 16.3 H MPV 6.2 L [place] % (Auto) 13.6 H Lymph # (Auto) 1.3 L [place] # (Auto) 1.1 H ABG Methemoglobin VBG pH VBG pCO2 VBG pO2 VBG O2 Saturation Carboxyhemoglobin Total Hemoglobin POC Sodium 129 L Sodium 123 L POC Chloride 90 L Chloride 87 L Creatinine 0.6 L POC Creatinine 0.5 L Glucose Calcium POC WB Ioniz Calcium 1.12 L Magnesium Total Bilirubin 2.9 H Direct Bilirubin AST 63 H ALT 44 H Lactate Dehydrogenase Albumin 2.7 L Globulin 4.5 H Albumin/Globulin Ratio 0.6 L Meds: Medications Albuterol Sulfate (Ventolin) 2.5 mg NEB Q2HP PRN PRN Reason: Shortness Of Breath Albuterol/Ipratropium (Duoneb) 3 ml NEB Q4HRT [facility] Furosemide (Lasix) 60 mg PO DAILY [facility] Last Admin: 11/07/18 09:16 Dose: 60 mg Documented by: Heparin Sodium (Porcine) (Heparin) 5,000 unit SQ Q12 [facility] Last Admin: 11/07/18 09:21 Dose: 5,000 unit Documented by: Magnesium Oxide (Magnesium Oxide) 400 mg PO DAILY [facility] Last Admin: 11/07/18 09:17 Dose: 400 mg Documented by: Naloxone HCl (Narcan) 0.1 mg IV Q2MIN PRN PRN Reason: Opiate Reversal Omeprazole (Prilosec) 20 mg PO ACB [facility] Last Admin: 11/07/18 07:39 Dose: 20 mg Documented by: Ondansetron HCl (Zofran) 4 mg IV Q6HP PRN PRN Reason: Nausea And Vomiting Sodium Chloride (Saline Flush) 10 ml IV Q8 [facility] Last Admin: 11/07/18 16:19 Dose: 10 ml Documented by: Sodium Chloride (Sodium Chloride) 1 gm PO TID [facility] Last Admin: 11/07/18 16:19 Dose: 1 gm Documented by: Spironolactone (Aldactone) 150 mg PO DAILY [facility] Last Admin: 11/07/18 09:17 Dose: 150 mg Documented by: Thiamine HCl (Vitamin B1) 100 mg PO DAILY [facility] Last Admin: 11/07/18 09:17 Dose: 100 mg Documented by: - ABG Interpretation ABG results: 11/06/18 22:21 ABG Methemoglobin 0 L VBG pH 7.49 H VBG pCO2 32.1 L VBG pO2 62 H VBG HCO3 24.0 VBG Total CO2 25.0 VBG O2 Saturation 84.8 H VBG Base Excess 1.2 Medical - PN: A/P - Time Spent With Patient Total time spent is greater than 50% in coordination of care (as documented) at patient's floor/unit and/or counseling patient: - Narrative A/P Narrative: A/P Hyponatremia, due to cirrhosis, and possibly low protein intake, cannot rule out siadh Cirrhosis, Alcoholic Hypoalbuminemia COPD/Shortness of breath Pulmonary Hypertension Plan continue fluid restriction to 1500ml monitor sodium closely, resume home meds. I am not planning on cutting the diuretics as the GI provider has just increased them. Pt will likely need to be on diuretics, aldactone and lasix, thoguh I believe Aldactone is worsening the hyponatremia. will see how he does on sodium tablets and fluid restriction. urine sodium is elevated 118 , urine osm 524, not sure if done after lasix dose. get echo to r/o any cardiac etiology for fluid overload. await report duonebs for now, Pt does not appear to be in copd exacerbation DVT heparin sq Regular diet full code. Medical - PN: Qual - VTE Deep Vein Thrombosis/Pulmonary Embolism Present on Admission: No
[2018-11-08] MEDS: IPRATROPIUM/ALBUTEROL 3 ML AMPUL.NEB NEB SCH ×3 (02:17→11:52)
[2018-11-08] MEDS: 0.9 % SODIUM CHLORIDE 10 ML SYRINGE IV SCH (05:20)
[2018-11-08 06:58] LABS: ALT/SGPT 37 U/l (0-40); Albumin 2.4 gm/dL (3.2-5.2); Albumin/Globulin Ratio 0.6 (1.0-2.3); Alkaline Phosphatase 99 U/L (39-117); Bilirubin,Direct 1.1 mg/dL (0.0-0.3); Blood Urea Nitrogen 10 mg/dl (8-23); Gamma Glutamyl Transpeptidase 55 U/L (8-61); Uric Acid 3.4 mg/dL (2.5-8.0)
[2018-11-08] MEDS: OMEPRAZOLE 20 MG CAPSULE PO SCH (07:13)
[2018-11-08] MEDS: SPIRONOLACTONE 25 MG TABLET PO SCH (09:39)
[2018-11-08] MEDS: FUROSEMIDE 40 MG TABLET PO SCH (09:40)
[2018-11-08] MEDS: MAGNESIUM OXIDE 400 MG TABLET PO SCH (09:40)
[2018-11-08] MEDS: SODIUM CHLORIDE 1 GM TABLET PO SCH (09:40)
[2018-11-08] MEDS: THIAMINE 100 MG TABLET PO SCH (09:40)
[2018-11-08] MEDS: HEPARIN 5,000 UNIT/ML VIAL SQ SCH (09:43)
--- NOTE | 2018-11-08 10:56 | Discharge Summary ---
Medical - DS: Prov Patient information: Note initiated : 11/08/18 at 10:49 am Service Date, if different from initiated Date: [] Patient: Dontrell Grande 63 y/o M admitted on 11/06/18 for Short of breath. Chief Complaint: [] Date of admission: 11/06/18 22:50 Discharge date: 11/08/18 Primary care physician: Zee Bravo Consults: 11/06/18 Consult to Physician [CONS] Stat Comment: Consulting Provider: Jo-Ann Malone Reason For Exam: Physician to Consult Discharging clinician: Jo-Ann Malone Medical - DS: Meds - Discharge Medications Prescriptions: Sodium Chloride 1 gm PO TID #90 tablet Active and Home Medications: Home Medications Albuterol Sulfate [Proair Hfa] 8.5 gm IH Q4HP PRN 11/29/17 [History Confirmed 11/06/18 Last Taken 10/14/18 22:30] Ipratropium/Albuterol [Duoneb] 3 ml NEB Q4HP PRN 11/29/17 [History Confirmed 11/06/18 Last Taken 10/14/18 18:30] Spironolactone [Aldactone] 150 mg PO DAILY 10/14/18 [History Confirmed 11/06/18 Last Taken 10/13/18] Glucosamine HCl/MSM [Sm Glucosamine & MSM Tablet] 1,500 mg PO 2-3XW 10/15/18 [History Confirmed 11/06/18 Last Taken 10/14/18] Magnesium Oxide [Magnesium] 250 mg PO 2-3XW 10/15/18 [History Confirmed 11/06/18 Last Taken Unknown] Potassium Gluconate 99 mg PO DAILY 10/15/18 [History Confirmed 11/06/18 Last Taken 10/14/18] Thiamine [Vitamin B1] 100 mg PO DAILY #60 tab 10/18/18 [Rx Confirmed 11/06/18 Last Taken Unknown] Furosemide [Lasix] 60 mg PO DAILY 11/06/18 [History Confirmed 11/06/18 Last Taken Unknown] Omeprazole [PriLOSEC] 20 mg PO ACB 11/06/18 [History Confirmed 11/06/18 Last Taken Unknown] Medical - DS: Hosp Hospital course: Mr. Grande is a 63 year old M with h/o copd, presents to the Er today with complaints of not feeling self, and shortness of breath. As per the patient he has been short of breath x 3 days, progressively getting worse. He is chronically short of breath. The patient denies any fever chills cough chest pain abdominal pain nausea vomiting headache any bleeding from anywhere. He has increased edema in his lower extremities. The patient was recently admitted to the hospital for acute hyponatremia. The patient had been followed by GI physician and his dose of diuretics was increased. The patient was also noncompliant with his fluid restriction since discharge however progressively has been taking in more fluid. The patient admits to being not him self, and the told the Er provider that he seems a bit more confused than usual. The patient admits to having dizziness. IN the ER the patient was afebrile, 97.2 heart rate 88 blood pressure 115/61 respirations 20 saturating 98% on room air. Labs show WBC count of 8.4 hemoglobin 12.6 platelet 163. Sodium is low at 123, potassium 3.9 bicarbonate 24 creatinine 0.6 total bilirubin is 2.9 AST 63 ALT 44 alk phos 112 albumin 2.7 TSH done last admission was normal. 11/07 Patient seen and examined, no acute overnight events. Sodium improved to 125. Patient has no new complaints or concerns 11/08 Pt seen examined doing well, no acute overnight issues, sodium level is 126, His baseline is around 128. Given that his sodium level is improving, mentation is back to baseline, we will be discharging the patient home. In Summary Hyponatremia- due to non compliance with diet and diuretic medications, educated on the need for compliance with fluid restriction Will start pt on sodium chloride 1gm tid, and continue with the diuretic regime by the mold repairer. The patient is improving on this regime in the hospital. He also has not been very compliant with his magnesium supplements, will advise to take this daily. No other changes made to his [facility] home med list. Discharge diagnosis: Hyponatremia, - Time Spent with Patient Total time spent providing and/or coordinating discharge services: Greater than 30 minutes Medical - DS: Exam - Constitutional Vitals: Vital Signs Temp Pulse Pulse Resp BP Pulse Ox 11/08/18 07:33 97.2 F 87 16 108/55 97 11/08/18 07:00 85 18 11/08/18 03:17 98.0 F 88 16 108/66 98 11/07/18 23:00 98.3 F 92 H 18 117/68 98 11/07/18 22:35 92 H 18 11/07/18 19:11 98.5 F 92 H 16 120/64 98 11/07/18 18:35 95 H 18 11/07/18 15:44 97.9 F 86 18 115/69 92 11/07/18 13:05 93 H 18 11/07/18 11:42 98.1 F 14 108/65 94 Intake and Output 11/07/18 11/08/18 11/08/18 21:59 05:59 13:59 Intake Total 750 550 Output Total 625 275 100 Balance 125 275 -100 Intake: Oral 750 550 Output: Void Amount 625 275 100 Other: Meal Lunch Magic cup Percent of Meal Consumed 75% 100% Feeding Ability Independent Urine Appearance Clear Clear Urine Color Straw Dark Yellow Dark Yellow Urine Odor Normal Strong Strong # Voids 1 Weight 109 lb 8 oz Additional comments: Constitutional; Afebrile, cooperative, alert, not in distress. Eyes- No icterus, , No periorbital swelling Ears- Ext ear normal, hearing normal to conversation. Neck- Midline trachea, supple Respiratory system: Air Entry equal on both sides, No crackles or wheezing, no rhonchi. CVS- Rate rhythm regular, S1,S2 heard, no gallop, no rub. Abdomen- Soft nontender abdomen, no organomegaly, no tenderness, no guarding or rigidity, SENIOR IT SPECIALIST- AOOx3, moving all extremities, no gross focal deficit noted. Medical - DS: Data Labs on day of discharge: Labs from last 24 hours 11/08/18 11/07/18 05:05 16:00 Sodium 126 L 125 L Potassium 3.8 4.4 Chloride 93 L 94 L Carbon Dioxide 24 23 Anion Gap 9.0 8.0 BUN 10 11 Creatinine 0.6 L 0.6 L GFR Calculation 106 106 Glucose 110 H 112 H Uric Acid 3.4 Calcium 8.3 L 8.5 L Phosphorus 3.2 Magnesium 1.6 Total Bilirubin 2.7 H Direct Bilirubin 1.1 H GGT 55 AST 55 H ALT 37 Alkaline Phosphatase 99 Lactate Dehydrogenase 236 Total Protein 6.5 Albumin 2.4 L Globulin 4.1 H Albumin/Globulin Ratio 0.6 L Triglycerides 26 Medical - DS: A/P - Patient/Caregiver Discharge Instructions Activity: increase activity as tolerated Diet: Regular Diet (Fluid restriction to 1500ml (51Fl Oz) ) Additional Instructions: Please take salt tablets 1 gram three time a day Restrict water/fluid intake to 51Oz a day (1500ml) Please follow up with PCP in 1-2 weeks take magnesium supplement daily Go to the ER if worsening symptoms, chest pain, or any other acute concern. - Follow up Plan Follow up with: Zee Bravo ARNP [Primary Care Provider] - Disposition: Home Health Service Prognosis: Fair Rehab Potential: Fair I certify that the patient requires SNF services: No Overall status at discharge: patient is progressing back to baseline Medical - DS: Qual - VTE Deep Vein Thrombosis/Pulmonary Embolism Present on Admission: No
== END 2018-11-08 14:00 | disposition home health service (06) | DRG 641 ==
LOC: ED 19:57 → MEDSUR 22:50
PROVIDERS: ADMIT Internal Medicine; ATTEND Internal Medicine